=== PATIENT | male | born 1940 | race Caucasian/White ===

== ENCOUNTER 2016-09-10 04:32 | Inpatient (IN) | payer MEDICARE, OTHER ==
[2016-09-10] VITALS (18 sets, daily range): BP systolic 116–169; BP diastolic 54–84; PULSE 64–95; RESP 16–18; TEMP 97.6–98.2; O2SAT 95–99
[~2016-09-10] VITALS: Ht 175.3 cm; Wt 77.0 kg
[~2016-09-10 04:32] MED LIST: ASCO500T PO; ASPI1TAB69 PO; ATEN50TA PO; CLOP75TA PO; CYAN100017 PO; EZET1TAB8 PO; FINA5TAB2 PO; FOLI1TAB4 PO; HYDR12.57 PO; LEVO25TA4 PO; NIAS1000 PO; PANT20TA2 PO; RANO500 PO; ROSU1TAB8 PO; TAMS0.4C4 PO; VITA400T2 PO
[2016-09-10 05:13] LABS: AUTOMATED NEUTROPHIL # 4.5 TH/MM3 (1.8-7.7); BASOPHIL % 0.5 % (0.0-2.0); EOSINOPHIL # 0.2 TH/MM3 (0-0.4); EOSINOPHIL % 1.9 % (0.0-4.0); HEMATOCRIT 42.8 % (39.0-51.0); HEMO FLAGS DIFF FINAL; LYMPHOCYTE # 2.1 TH/MM3 (1.0-4.8); MEAN CELL VOLUME 103.1 FL (80.0-100.0); MEAN CORPUSCULAR HGB CONC 34.9 % (32.0-36.0); NEUT % 56.6 % (16.0-70.0); PLATELET COUNT 176 TH/MM3 (150-450); RED BLOOD COUNT 4.15 MIL/MM3 (4.50-5.90); RED CELL DISTRIBUTION WIDTH 14.9 % (11.6-17.2)
[2016-09-10 05:21] LABS: APTT (PATIENT) 28.1 SEC (24.3-30.1); PROTHROMBIN TIME - PATIENT 11.3 SEC (9.8-11.6)
[2016-09-10 05:25] LABS: ANION GAP 9 MEQ/L (5-15); AST (GOT) 28 U/L (15-37); BICARBONATE 29.9 MEQ/L (21.0-32.0); BLOOD UREA NITROGEN 17 MG/DL (7-18); CHLORIDE 100 MEQ/L (98-107); GLOMERULAR FILTRATION RATE 63 ML/MIN (>89); MAGNESIUM 1.9 MG/DL (1.5-2.5); POTASSIUM 3.4 MEQ/L (3.5-5.1); SODIUM (NA) 139 MEQ/L (136-145)
--- NOTE | 2016-09-10 05:29 | RADRPT ---
EXAM DATE/TIME: 09/10/2016 04:55 [place] COMPARISON: CHEST SINGLE AP, January 01, 2016, 11:59. INDICATIONS : Chest pain. MEDICAL HISTORY : Hypertension. Gastroesophageal reflux disease. SURGICAL HISTORY : CABG. Coronary artery stent. ENCOUNTER: Initial ACUITY: 3 days PAIN SCORE: 8/10 LOCATION: chest midline. FINDINGS: A single view of the chest demonstrates the lungs to be symmetrically aerated without evidence of mas s, infiltrate or effusion. Status post CABG. The cardiomediastinal contours are unremarkable. [place] us structures are intact. CONCLUSION: 1. Status post CABG. 2. No infiltrate. Willian Posadas MD on September 10, 2016 at 5:27 Board Certified Radiologist. This report was verified electronically.
[2016-09-10] MEDS ORDERED: ASPIRIN 81 MG CHEW TAB CHEW ONE (05:30)
[2016-09-10] MEDS ORDERED: NITROGLYCERIN 2% OINT 1 GM PACKET TOPICAL ONE (05:30)
[2016-09-10] MEDS ORDERED: SODIUM CHLOR 0.9% 250 ML INJ 250 ML IV ONE (05:30)
--- NOTE | 2016-09-10 05:30 | PD ---
HPI Chief Complaint: Cardiac Complaint Time Seen by Provider: 04:52 Travel History International Travel<30 days: No Contact w/Intl Traveler<30days: No Traveled to known affect area: No History of Present Illness HPI The patient is a 76 year old male who presents to the [facility] emergency department with a history of coronary artery disease with recurrent problems with angina for the last several years. The patient is followed by Dr. Becker for his cardiac care. He reports that approximately 22 years ago he underwent a 5 vessel bypass. He reports that to the vessels have included since then. He reports that he last had a cardiac catheterization 2-3 years ago. The patient recently underwent a chemical stress test on , however he reports that he filled it. He has an appointment with Dr. Howell on Saturday scheduled for a cardiac catheterization. The patient reports that on Saturday he began to have chest pain and nausea. The patient reports the chest pain resolved with nitroglycerin, however since then he has had persistent nausea. He reports that he's had vomiting 2. He reports that he's had diarrhea since Saturday 2 times per day. He denies having any blood in his stool or black or tarry stools. The patient reports having intermittent episodes of diaphoresis. He denies having any shortness of breath. He denies having any chest pain currently. The patient denies any recent fevers, cough, congestion, neck pain, abdominal pain, urinary symptoms, or neurologic symptoms. COUNTS INCLUDE 234 BEDS AT THE [facility] Past Medical History Narrative Medical The patient's past medical history is significant for acid reflux with Bone' s esophagitis, coronary artery disease, history of a valvular abnormality with a heart murmur, history of thrombocytopenia, anemia, benign prostatic hypertrophy, diverticulitis, history of inflammatory bowel disease, hyperlipidemia, hypertension Arthritis: Yes (RIGHT HIP) Autoimmune Disease: Yes (ARTHRITIS R HIP) Blood Disorders: No Heart Rhythm Problems: No Cancer: No Cardiac Catheterization: Yes Cardiovascular Problems: Yes (CABG, CAROTID STENTS, HEART CATH) High Cholesterol: Yes Chest Pain: No Congestive Heart Failure: No Diabetes: No Diminished Hearing: Yes (OSAGE) Endocrine: No Gastrointestinal Disorders: Yes (GERD; DIVERTICULITIS) GERD: Yes Glaucoma: No Genitourinary: No Headaches: Yes Hepatitis: No Hiatal Hernia: No Hypertension: Yes Immune Disorder: No Implanted Vascular Access Dvce: Yes Kidney Stones: Yes Musculoskeletal: No Neurologic: No Psychiatric: No Reproductive: No Respiratory: No Integumentary: No Thyroid Disease: Yes Past Surgical History Narrative Surgical The patient's past surgical history is significant for carotid endarterectomy on the right, history of a cholecystectomy, history of coronary artery bypass grafting of 5 vessels. Abdominal Surgery: No AICD: No Body Medical Devices: CAROTID STENTS; WIRES/WILLIE R/T CABG Cardiac Surgery: Yes Cholecystectomy: Yes Coronary Artery Bypass Graft: No Ear Surgery: No Endocrine Surgery: No Eye Surgery: No Genitourinary Surgery: No Gynecologic Surgery: No Joint Replacement: No Oral Surgery: No Pacemaker: No Thoracic Surgery: No Other Surgery: Yes (GALLBLADDER, RIGHT CEA) Social History Alcohol Use: Yes (SOCIAL) Tobacco Use: No Substance Use: No Allergies-Medications (Allergen,Severity, Reaction): Coded Allergies: Cipro (Verified Allergy, Severe, 09/10/16) Septra (Verified Allergy, Severe, CONTRACTED HEPATITIS, 09/10/16) Sulfa (Verified Allergy, Severe, CONTRACTED HEPATITIS, 09/10/16) Reported Meds & Prescriptions Reported Meds & Active Scripts Active Reported Vitamin D (Cholecalciferol) 400 Unit Tab 1 Tab PO DAILY Tamsulosin (Tamsulosin HCl) 0.4 Mg Cap 0.4 Mg PO HS Rosuvastatin (Rosuvastatin Calcium) 20 Mg Tab 20 Mg PO DAILY Ranexa ER 12 HR (Ranolazine) 500 Mg Tab 500 Mg PO BID Pantoprazole (Pantoprazole Sodium) 20 Mg Tab 20 Mg PO DAILY Niaspan (Niacin ER) 1,000 Mg Tab 1,000 Mg PO HS Hydrochlorothiazide 12.5 Mg Cap 12.5 Mg PO DAILY Levothyroxine (Levothyroxine Sodium) 25 Mcg Tab 25 Mcg PO DAILY Folate (Folic Acid) 1 Mg Tab 1 Mg PO DAILY Finasteride 5 Mg Tab 5 Mg PO HS Do not crush. Ezetimibe 10 Mg Tab 10 Mg PO DAILY B-12 (Cyanocobalamin) 1,000 Mcg Cap 1,000 Mcg PO DAILY Clopidogrel (Clopidogrel Bisulfate) 75 Mg Tab 75 Mg PO DAILY Atenolol 50 Mg Tab 25 Mg PO DAILY Aspirin 81 Mg Tabdr 81 Mg PO DAILY Ascorbic Acid 500 Mg Tab 500 Mg PO DAILY Review of Systems Except as stated in HPI: all other systems reviewed are Neg General / Constitutional: No: Fever Eyes: No: Visual changes HENT: No: Headaches Cardiovascular: Positive: Chest Pain or Discomfort Respiratory: No: Shortness of Breath Gastrointestinal: Positive: Nausea, Vomiting, Diarrhea, Changes in Bowel Habits , No: Abdominal Pain, Hematemesis, Hematochezia, Indigestion, Loss of Appetite Genitourinary: No: Dysuria Musculoskeletal: No: Pain Skin: No Rash Neurologic: No: Weakness Psychiatric: No: Depression Endocrine: No: Polydipsia Hematologic/Lymphatic: No: Easy Bruising Physical Exam Narrative General: The patient is a well-developed well-nourished male in no acute distress. Head and Neck exam: Head is normocephalic atraumatic. Eyes: EOMI, pupils are equal round and reactive to light. Nose: Midline septum with pink mucous membranes Mouth: Dentition unremarkable. Moist mucus membranes. Posterior oropharynx is not erythematous. No tonsillar hypertrophy. Uvula midline. Airway patent. Neck: No palpable lymphadenopathy. No nuchal rigidity. No thyromegaly. Cardiovascular: Regular rate and rhythm with a 2/6 systolic murmur, no gallops or rubs. Lungs: Clear to auscultation bilaterally. No wheezes, rhonchi, or rales. Abdomen: Soft, without tenderness to palpation in all 4 quadrants of the abdomen. No guarding, rebound, or rigidity. Normal bowel sounds are audible. No tenderness on palpation of McBurney's point. Negative Boo's sign. Extremities: No clubbing, cyanosis, or edema. 2+ pulses in all 4 extremities. No calf tenderness on palpation. Back: No spinous process tenderness to palpation. No costovertebral angle tenderness to palpation. Neurologic Exam: Grossly nonfocal. Skin Exam: No rash noted. Intact skin that is warm and dry. Data Data Last Documented VS Vital Signs Date Time Temp Pulse Resp B/P Pulse Ox O2 Delivery O2 Flow Rate FiO2 09/10/16 06:00 73 16 141/75 98 Room Air 09/10/16 04:34 97.8 Orders Electrocardiogram (09/10/16 04:52) Complete Blood Count With Diff (09/10/16 04:52) Comprehensive Metabolic Panel (09/10/16 04:52) Creatine Kinase (Cpk) (09/10/16 04:52) Ckmb (Isoenzyme) Profile (09/10/16 04:52) Troponin I (09/10/16 04:52) B-Type Natriuretic Peptide (09/10/16 04:52) Prothrombin Time / Inr (Pt) (09/10/16 04:52) Act Partial Throm Time (Ptt) (09/10/16 04:52) Lipase (09/10/16 04:52) Urinalysis - C+S If Indicated (09/10/16 04:52) Magnesium (Mg) (09/10/16 04:52) Chest, Single Ap (09/10/16 04:52) Iv Access Insert/Monitor (09/10/16 04:52) Ecg Monitoring (09/10/16 04:52) Oximetry (09/10/16 04:52) Lactic Acid (09/10/16 04:52) Aspirin Chew (Aspirin Chew) (09/10/16 05:30) Nitroglycerin 2% Oint (Nitroglycerin 2% (09/10/16 05:30) Sodium Chlor 0.9% 250 Ml Inj (Ns 250 Ml (09/10/16 05:30) Ondansetron Inj (Zofran Inj) (09/10/16 05:45) Potassium Chloride (Kcl) (09/10/16 06:15) Admit Order (Ed Use Only) (09/10/16 06:24) Labs Laboratory Tests Test 09/10/16 05:00 White Blood Count 8.0 TH/MM3 Red Blood Count 4.15 MIL/MM3 Hemoglobin 14.9 GM/DL Hematocrit 42.8 % Mean Corpuscular Volume 103.1 FL Mean Corpuscular Hemoglobin 36.0 PG Mean Corpuscular Hemoglobin 34.9 % Concent Red Cell Distribution Width 14.9 % Platelet Count 176 TH/MM3 Mean Platelet Volume 7.1 FL Neutrophils (%) (Auto) 56.6 % Lymphocytes (%) (Auto) 26.0 % Monocytes (%) (Auto) 15.0 % Eosinophils (%) (Auto) 1.9 % Basophils (%) (Auto) 0.5 % Neutrophils # (Auto) 4.5 TH/MM3 Lymphocytes # (Auto) 2.1 TH/MM3 Monocytes # (Auto) 1.2 TH/MM3 Eosinophils # (Auto) 0.2 TH/MM3 Basophils # (Auto) 0.0 TH/MM3 CBC Comment DIFF FINAL Differential Comment Prothrombin Time 11.3 SEC Prothromb Time International 1.0 RATIO Ratio Activated Partial 28.1 SEC Thromboplast Time Sodium Level 139 MEQ/L Potassium Level 3.4 MEQ/L Chloride Level 100 MEQ/L Carbon Dioxide Level 29.9 MEQ/L Anion Gap 9 MEQ/L Blood Urea Nitrogen 17 MG/DL Creatinine 1.14 MG/DL Estimat Glomerular Filtration 63 ML/MIN Rate Random Glucose 112 MG/DL Lactic Acid Level 1.5 mmol/L Calcium Level 9.1 MG/DL Magnesium Level 1.9 MG/DL Total Bilirubin 1.9 MG/DL Aspartate Amino Transf 28 U/L (AST/SGOT) Alanine Aminotransferase 25 U/L (ALT/SGPT) Alkaline Phosphatase 89 U/L Total Creatine Kinase 78 U/L Troponin I 0.07 NG/ML B-Type Natriuretic Peptide 77 PG/ML Total Protein 6.7 GM/DL Albumin 3.8 GM/DL Lipase 101 U/L MDM Medical Decision Making Medical Screen Exam Complete: Yes Emergency Medical Condition: Yes Medical Record Reviewed: Yes Differential Diagnosis Viral versus bacterial gastroenteritis, versus acute coronary syndrome, versus viral syndrome Narrative Course During the course of the patients emergency department visit, the patients history, examination, and differential diagnosis were reviewed with the patient. The patient had IV access obtained and blood work sent for analysis. The patienton a surveillance system monitor with oximetry and blood pressure monitoring. An EKG was done on arrival. The patient's EKG reveals a sinus rhythm heart rate of 76, first-degree AV block is noted. QRS duration is 106 ms, QTC [address] segment elevation is noted, T waves are inverted in V1, Q's are noted in lead 3. The patient reports that he take a baby aspirin prior to arrival. The patient was given an additional aspirin 81 mg by mouth, nitroglycerin 1 inch the chest wall, Zofran 4 mg IV, normal saline at 250 ml IV fluid bolus times one. The patients laboratory studies were reviewed and remarkable for a white count of 8, hemoglobin 14.9, platelet 176 with 15 monocytes, CMP is remarkable for a potassium of 3.4 which was supplemented orally, glucose 112, total bilirubin 1.9 and a patient with a history of Gilbert's syndrome, CPK 78, troponin I intermediate 0.07, BNP is 77, lipase 101, PT PTT within normal limits. Radiology studies were reviewed and remarkable for a chest x-ray that shows no acute abnormality. The patients results were discussed with the patient, including the plan of care. I explained that further testing and/ or monitoring is indicated based on the patients history, examination, and/ or laboratory findings. Therefore, I recommended admission for additional evaluation. The patient expressed understanding and was agreeable with this plan. The patient was admitted to the hospital in stable condition and sent to a bed under the care of the [facility] service. Physician Communication Physician Communication The patient's case was discussed with Dr. Pantoja who did agree to have the patient for further evaluation and treatment at this time. The patient's case was discussed with Dr. Howell, the case work aide at approximately 6:45 AM. He did agree to see the patient consultation and was agreeable with plan for the patient to be started on a heparin drip per [facility] protocol. Diagnosis Primary Impression: Unstable angina Additional Impression: Elevated troponin I level Admitting Information Admitting Physician Requests: it Elis Fox MD Sep 10, 2016 05:30
[2016-09-10 05:31] LABS: ALKALINE PHOSPHATASE 89 U/L (45-117); ALT (GPT) 25 U/L (12-78); TOTAL BILIRUBIN ADULT 1.9 MG/DL (0.2-1.0)
[2016-09-10 05:41] LABS: CREATINE KINASE 78 U/L (39-308)
[2016-09-10] MEDS ORDERED: ONDANSETRON HCL 4 MG/2 ML VIAL IV ONE (05:45)
[2016-09-10] MEDS ORDERED: POTASSIUM CHLORIDE 20 MEQ CONTROLLED RELEASE TAB PO ONE (06:15)
[2016-09-10] MEDS ORDERED: SODIUM CHLOR 0.9% 1000 ML INJ 1,000 ML IV SCH ×2 (06:25→12:11)
[2016-09-10] MEDS ORDERED: SODIUM CHLORIDE 0.9% FLUSH 10 ML FLUSH IV FLUSH PRN (06:30)
[2016-09-10] MEDS ORDERED: HEPARIN-D5W INJ 250 ML IV SCH (06:45)
[2016-09-10] MEDS ORDERED: HEPARIN SODIUM - IV 10,000 UNITS/10 ML VIAL IV ONE (06:45)
[2016-09-10] MEDS ORDERED: MORPHINE SULFATE 4 MG/ML INJ IV PRN (07:00)
[2016-09-10] MEDS ORDERED: ACETAMINOPHEN 325 MG TAB PO ONE (07:45)
[2016-09-10] MEDS ORDERED: ACETAMINOPHEN 325 MG TAB PO PRN ×2 (08:00→12:15)
[2016-09-10] MEDS ORDERED: ACETAMINOPHEN/HYDROcodone 325 MG/5 MG TAB PO PRN (08:00)
[2016-09-10] MEDS: SODIUM CHLORIDE 0.9% FLUSH 10 ML FLUSH IV FLUSH SCH ×2 (08:38→21:53)
[2016-09-10] MEDS: FOLIC ACID 1 MG TAB PO SCH (08:38)
[2016-09-10] MEDS: ASPIRIN EC 81 MG TABEC PO SCH (08:38)
[2016-09-10] MEDS: ATENOLOL 50 MG TAB PO SCH (08:38)
[2016-09-10] MEDS: ATORVASTATIN 40 MG TAB PO SCH (08:39)
[2016-09-10] MEDS: PANTOPRAZOLE SOD 20 MG DELAYED RELEASE TAB PO SCH (08:39)
[2016-09-10] MEDS: CHOLECALCIFEROL (VIT D3) 400 UNIT TAB PO SCH (08:39)
[2016-09-10] MEDS: ASCORBIC ACID 500 MG TAB PO SCH (08:39)
[2016-09-10] MEDS: EZETIMIBE 10 MG TAB PO SCH (08:39)
[2016-09-10] MEDS: LEVOTHYROXINE SODIUM 25 MCG TAB PO SCH (08:43)
[2016-09-10] MEDS: RANOLAZINE 500 MG EXTENDED RELEASE TAB PO SCH ×2 (08:43→21:53)
[2016-09-10] MEDS ORDERED: CLOPIDOGREL 75 MG TAB PO SCH (09:00)
[2016-09-10] MEDS ORDERED: BISACODYL 10 MG SUPP RECTAL PRN (09:00)
[2016-09-10 09:03] LABS: BLOOD, URINE NEG (NEG); COMMENT (UR) CULT NOT INDICATED; CULTURE IF INDICATED CULT NOT INDICATED; GLUCOSE,URINE NEG (NEG); HYALINE CAST, URINE 7 /lpf (RARE); KETONE, URINE 10 mg/dL (NEG); MUCUS URINE MANY /lpf (OCC); NITRITE,URINE NEG (NEG); URINE COLOR YELLOW (YELLW/STRAW)
[2016-09-10] MEDS ORDERED: IOHEXOL 350 MG/ML 100 ML BTL (for Cath Lab) OTHER ONE (09:21)
[2016-09-10] MEDS ORDERED: MIDAZOLAM HCL 2 MG/2 ML VIAL ONE ×2 (09:39→10:50)
[2016-09-10] MEDS ORDERED: SODIUM NITROPRUSSIDE 50 MG/2 ML VIAL ONE (10:29)
[2016-09-10] MEDS ORDERED: HEPARIN SODIUM - IV 10,000 UNITS/10 ML VIAL ONE (10:31)
[2016-09-10] MEDS ORDERED: HEPARIN-NS/PF INJ 500 ML ONE (10:43)
[2016-09-10] MEDS ORDERED: TICAGRELOR 90 MG TAB PO ONE ×2 (11:26→12:15)
[2016-09-10] MEDS ORDERED: PROTAMINE SULFATE 50 MG/5 ML VIAL ONE (11:28)
[2016-09-10] MEDS ORDERED: ONDANSETRON HCL 4 MG/2 ML VIAL IVP PRN (12:00)
[2016-09-10] MEDS ORDERED: MISC INFORMATION XX ONE (12:15)
[2016-09-10] MEDS ORDERED: ATROPINE SULFATE 1 MG/ML VIAL IV PRN (12:15)
[2016-09-10] MEDS ORDERED: ONDANSETRON HCL 4 MG/2 ML VIAL IV PRN (12:15)
--- NOTE | 2016-09-10 12:45 | MB ---
cc: IRON HEBERT MD DATE OF 1940 DATE OF CONSULTATION September 10, 2016 REASON FOR CONSULTATION Unstable angina. HISTORY OF PRESENT ILLNESS 76-year-old male with a past medical history significant for CAD status post five-vessel CABG, moderate aortic stenosis, hypertension, hyperlipidemia, carotid stents who presented to the emergency department with complaints of chest discomfort for the last couple of days associated with nausea and not relieved by nitroglycerin. The patient is followed by Dr. Dumont. He recently had a chemical stress test which showed reversible defect in the inferior wall. In the emergency department he was started on heparin drip, given aspirin, nitrates and Plavix. He denies fever, chills, bleeding, weight loss, dizziness, syncope, leg swelling, PND or palpitations. ER EKG sinus rhythm with no acute ST changes. Cardiology has been consulted for further management and evaluation. REVIEW OF SYSTEMS Negative except for what is mentioned in the HPI. PAST MEDICAL HISTORY 1. Coronary artery disease as mentioned above. 2. Moderate aortic stenosis. 3. BPH. 4. Hypertension. 5. Hyperlipidemia. 6. DVT. 7. Colitis. 8. Gastroesophageal reflux disease. 9. Carotid stenosis status post stents. PAST SURGICAL HISTORY CABG. Carotid endarterectomy. Cholecystectomy. SOCIAL HISTORY He drinks alcohol socially. No tobacco use or illicit drug use. ALLERGIES CIPRO. SEPTRA. SULFA. CARDIAC HOME MEDICATIONS 1. Rosuvastatin 20 mg p.o. daily. 2. Ranexa 5 mg p.o. b.i.d. 4. Niacin 1000 mg p.o. q.h.s. 5. Hydrochlorothiazide 12.5 mg p.o. daily. 6. Plavix 75 mg p.o. daily. 7. Atenolol 50 mg p.o. daily. 8. Aspirin 81 mg p.o. daily. REVIEW OF SYSTEMS Negative except for what is mentioned in the HPI. FAMILY HISTORY Noncontributory. PHYSICAL EXAMINATION VITAL SIGNS: Temperature 98.2, pulse 76, blood pressure 157/84, O2 sats 98% on room air. GENERAL: Awake, alert, oriented x 3. In no acute distress. NECK: No JVD, no carotid bruits. HEART: Regular rate and rhythm. A 3/6 systolic ejection murmur in the aortic focus. LUNGS: Clear to auscultation bilaterally. No wheezes, no rhonchi, no rales. ABDOMEN: Soft, nontender, nondistended with positive bowel sounds. EXTREMITIES: No cyanosis or edema. Pulses throughout. DATA CBC: Hemoglobin 14, hematocrit 42, platelet count 176. INR 1. CHEMISTRIES: Sodium 139, potassium 3.4, BUN 17, creatinine 1.14. Troponin 0.07. Urinalysis showing a large amount of proteins. CHEST X-RAY No acute pulmonary process. EKG Normal sinus rhythm with a third degree AV block. ECHOCARDIOGRAM done today, shows preserved LV systolic function and moderate aortic stenosis with a mean gradient of 24, a velocity of 2.1 and a calculated valve area of 1. [facility] 2013- Severe [place] vessel CAD with Patent ROLDAN to LAD, SVG to RCA and SVG to OM. ASSESSMENT AND PLAN 76-year-old male with known coronary artery disease who presented with chest pain that is not relieved by nitroglycerin suggestive of unstable angina. He has a recent positive nuclear stress test done at the office. He remains hemodynamically stable. His chest pain has subsided with medication. Given the patient's cardiac history and symptoms, he should be taken to the mobile home laborer to further assess CAD/SVG disease progression +/- PCI. The risks and benefits of left heart cath/intervention including but not limited to bleeding, infection, acute kidney injury, emergent bypass surgery, MT, neurovascular trauma, stroke and have been explained to the patient. The patient understands the risks and is willing to proceed. Regarding his Aortic Stenosis it seems to be at moderate in severity. Today's Echo- HALLEY is 1.0cm2, 20's mean gradients and 2.1 velocities. This can be followed with Dr. Rodarte on an outpatient setting. RECOMMENDATIONS 1. Keep n.p.o. 2. Left and Right heart cath today. 3. Continue Plavix and aspirin as well as beta-blockers, JOSE inhibitors, statins and heparin shivani. Thank you for the opportunity to take part in the care of this patient. Further therapy to be determined. MD RAMAN Johns/SSB /12:19 PM /12:35 PM ELIEL
--- NOTE | 2016-09-10 12:57 | MA ---
cc: GARY HEBERT DATE: 09/10/2016 DATE OF : 1940 PREOPERATIVE DIAGNOSIS 1. Unstable angina. 2. Known coronary artery disease, status post CABG x5. 3. Recent positive stress test. 4. Moderate aortic stenosis. POSTOPERATIVE DIAGNOSIS 1. Severe shawnee vessel coronary artery disease. 2. Patent 3/5 grafts. 3. Moderate aortic stenosis. 4. Successful revascularization of two vein grafts. PROCEDURE 1. Right heart catheterization to assess cardiac output. 2. Left heart catheterization 3. Selective right and left coronary angiography. 4. Selective saphenous vein grafts and internal mammary artery angiography. INDICATIONS Unstable angina, positive stress test. PROCEDURE DESCRIPTION Consent signed. The patient was brought into the cardiac microbiology lab manager in a fasting state. Using 1% lidocaine for local anesthesia and a micropuncture kit a 6- American sheath was inserted into the right common femoral artery. Right common femoral artery angiography was performed to confirm position of the sheath. Also, a 7-American sheath was inserted into the right femoral vein. Then we floated through the vein sheath a [place]-Car to wedge and this was followed by right heart pressure recordings as well as obtaining oxygen saturations on the right heart (MPA, RA, FA) and femoral artery. Then we proceeded with selective right and left coronary angiography as well as saphenous vein graft as internal mammary artery. Angiography was taken in multiple views. Left ventriculogram and hemodynamics were not obtained because the patient has a recent echocardiogram that shows preserved LV systolic function with moderate aortic stenosis. Angiography revealed 3/5 grafts patent and severe shawnee vessel CAD, which was unchanged from previous, however, the anatomy of the saphenous vein graft had significant progression of disease. Thus percutaneous intervention was planned. The first graft treated was the SVG to RCA. IV heparin was given for anticoagulation. The graft was then engaged with a 6-American multipurpose guide. We tried to deploy a distal protection device, however, given tortuosity of the vessel this was not possible. The vessel then as wired with a Choice PT extra-support wire where it was anchored distally. Nipride was given for chemical distal protection and this was followed by pre-dilation of the proximal aspect of the graft with a 2.5 x 12 balloon followed by insertion and deployment of a 2.75 x 12 drug-eluting stent in the distal segment of the graft, then a 2.75 x 22 in the midsegment of the graft and then a 2.75 x 22 on the proximal aspect of the graft. Final angiographic views revealed good stent apposition and expansion with LOLI-III flow. The saphenous vein graft going to the OM was engaged with a JR4 6-American guide. This was followed by wiring the vessel with a Choice PT wire and direct stenting with a 2.75 x 12 drug-eluting stent. Final angiographic views revealed good stent apposition and expansion with LOLI-III flow. The patient tolerated the procedure well without complications. Estimated blood loss was less than 70 cc. Total contrast used was 200 cc. The patient was loaded with Brilinta after the procedure. The right groin access site was closed with a Perclose device and the vein with a Vascade device. RESULTS HEMODYNAMICS Right heart catheterization: Right atrial pressure 2 mmHg. Right ventricular pressure 27/8. Right atrial pressure 2/2. Pulmonary capillary wedge pressure is 3. Main pulmonary artery pressure 18/4 with a mean of 10. Cardiac output by Brice calculation was 5. Left heart catheterization: Central aortic pressure was 110/55 with a mean of 75. CORONARY ANGIOGRAPHY 1. The left main tapers distally to a 70% stenosis in a Subramanian 1,0,0 classification. It does have LOLI-III flow. 2. The left anterior descending artery is totally occluded near its origin. 3. The left circumflex coronary artery has an ostial 40% lesion that is unchanged. OM1, 2 and 3 are patent; however, the OM1 and 2 are small. OM3 is the larger one. 4. The ramus is small and patent. 5. The right coronary artery is a dominant vessel which is diffusely diseased. It has a long mid 70% lesion that is unchanged from the last cath. GRAFT ANGIOGRAPHY 6. The saphenous vein graft to the right coronary artery is significantly diseased. There is a proximal 90% lesion, a mid long 70% lesion and a distal focal 70% lesion which has progressed from the last catheterization. 7. The saphenous vein graft to the first obtuse marginal has a 70% lesion in its ostial segment which has progressed from the last catheterization. 8. The internal mammary artery to the LAD is patent and adequately revascularizes the LAD. CONCLUSIONS 1. Severe three-vessel coronary artery disease. 2. Successful PCI/AMIE to SVG to right coronary artery and SVG to obtuse marginal. 3. Moderate aortic stenosis. RECOMMENDATIONS The patient will be staying overnight in the [facility] for observation. Will continue telemetry, post cath care, bed rest for the next four hours, IV hydration with 125 cc per hour of normal saline for the next four hours, and early ambulation after bed rest. Regarding his medications the patient should be on optimal medical therapy for ischemic heart disease which includes beta- homer, statin, JOSE inhibitor, lung long-acting nitrates and dual-antiplatelet agent with aspirin and Brilinta. Gary Hebert MD DIRECTOR OF MECHANICAL ENGINEERING/BT /12:00 PM /12:23 PM MTDAri
[2016-09-10 13:46] LABS: HEMATOCRIT 37.5 % (39.0-51.0); MEAN CELL VOLUME 103.3 FL (80.0-100.0); MEAN CORPUSCULAR HEMOGLOBIN 36.2 PG (27.0-34.0); MEAN CORPUSCULAR HGB CONC 35.1 % (32.0-36.0); PLATELET COUNT 168 TH/MM3 (150-450); RED BLOOD COUNT 3.63 MIL/MM3 (4.50-5.90); RED CELL DISTRIBUTION WIDTH 14.9 % (11.6-17.2); REVIEW FLAG FINAL; WHITE BLOOD COUNT 7.4 TH/MM3 (4.0-11.0)
[2016-09-10 13:54] LABS: APTT (PATIENT) 28.6 SEC (24.3-30.1); PROTHROMBIN TIME - PATIENT 11.6 SEC (9.8-11.6)
--- NOTE | 2016-09-10 14:09 | EKG ---
Date Performed: 09/10/2016 Time Performed: 04:50:23 PTAGE: 76 years EKG: Sinus rhythm WITH FIRST DEGREE AV BLOCK Since previous tracing, no significant change noted ABNORMAL ECG PREVIOUS TRACING : 01/01/2016 11.33 DOCTOR: Krystal Dumont Interpretating Date/Time 09/10/2016 14:07:50
--- NOTE | 2016-09-10 15:37 | EC ---
Study Study Date:09/10/2016 STUDY CONCLUSIONS SUMMARY - Left ventricle: The cavity size was normal. Wall thickness was normal. Systolic function was normal. The estimated ejection fraction was in the range of 55% to 60%. Wall motion was normal; there were no regional wall motion abnormalities. - Aortic valve: There was moderate stenosis. Valve area: 0.96cm^2(VTI). Valve area: 1.02cm^2 (Vmax). - Mitral valve: Mild regurgitation. - Pulmonary arteries: PA peak pressure: 45mm Hg (S). If LV function is below 40, please consider prescribing an ACEI or ARB or document rationale for non-use. PROCEDURE DATA STUDY STATUS: Elective. Procedure: Transthoracic echocardiography. Image quality was good. Scanning was performed from the parasternal, apical, and subcostal acoustic windows. Study completion: The patient tolerated the procedure well. Transthoracic echocardiography. M-mode, complete 2D, complete spectral Doppler, and color Doppler. Patient status: Inpatient. CARDIAC ANATOMY LEFT VENTRICLE: The cavity size was normal. Wall thickness was normal. Systolic function was normal. The estimated ejection fraction was in the range of 55% to 60%. Wall motion was normal; there were no regional wall motion abnormalities. AORTIC VALVE: Doppler: There was moderate stenosis. Trace to mild regurgitation. Valve area: 0.96cm^2(VTI). Valve area: 1.02cm^2 (Vmax). Mean gradient: 21mm Hg (S). Peak gradient: 39mm Hg (S). AORTA: Aortic root: The aortic root was normal in size. MITRAL VALVE: Structurally normal valve. Doppler: Transvalvular velocity was within the normal range. There was no evidence for stenosis. Mild regurgitation. LEFT ATRIUM: The atrium was normal in size. RIGHT VENTRICLE: The cavity size was normal. Wall thickness was normal. PULMONIC VALVE: Doppler: Transvalvular velocity was within the normal range. There was no evidence for stenosis. No regurgitation. TRICUSPID VALVE: Structurally normal valve. Doppler: Transvalvular velocity was within the normal range. No regurgitation. PULMONARY ARTERY: The main pulmonary artery was normal-sized. Systolic pressure was within the normal range. RIGHT ATRIUM: The atrium was normal in size. PERICARDIUM: There was no pericardial effusion. SYSTEMIC VEINS: Inferior vena cava: The vessel was normal in size. BASIC MEASUREMENTS ADULT Normal Left ventricle LV internal dimension, ED, chordal level, 43.5 mm 43-52 PLAX LV internal dimension, ES, chordal level, 32 mm 23-38 PLAX Fractional shortening, chordal level, PLAX *26 % >29 LV posterior wall thickness, ED 11.7 mm IVS/LVPW ratio, ED *1.43 <1.3 Ventricular septum Septal thickness, ED 16.7 mm Aortic valve Leaflet separation *7 mm 15-26 Right ventricle RV internal dimension, ED, PLAX 32.7 mm 19-38 BASIC MEASUREMENTS ADULT Normal Aortic valve Leaflet separation *7 mm 15-26 Aorta Root diameter, ED 34 mm 20-37 Left atrium Anterior-posterior dimension, ES 36 mm 19-40 LA/aortic root ratio 1.06 DOPPLER MEASUREMENTS ADULT Normal Main pulmonary artery Pressure, S *45 mm Hg =30 Aortic valve Peak velocity, S 313 cm/s Mean velocity, S 211 cm/s VTI, S 62.6 cm Mean gradient, S 21 mm Hg Peak gradient, S 39 mm Hg Valve area, VTI 0.96 cm^2 Valve area, Vmax 1.02 cm^2 Mitral valve Peak E-wave velocity 56.3 cm/s Peak A-wave velocity 102 cm/s Peak E/A ratio 0.6 Tricuspid valve Regurgitant peak velocity 292 cm/s Peak RV-RA gradient, S 34 mm Hg Maximal regurgitant velocity 292 cm/s Systemic veins Estimated CVP 10 mm Hg Right ventricle RV pressure, S *45 mm Hg <30 LEGEND: Mean values are shown as u=mean value. Asterisk (*) daniels values outside specified normal range. Prepared and signed by Harris Ye [id number]
--- NOTE | 2016-09-10 18:51 | HHI.HP ---
[facility] Heather Seals M.D. Admission Diagnosis unstable angina, intermediate troponin i Diagnoses: Chief Complaint: Chest discomfort Travel History International Travel<30 Days: No Contact w/Intl Traveler <30 Da: No Traveled to Known Affected Are: No History of Present Illness This is a 76-year-old male with past medical history significant for CAD status post CABG 5, moderate aortic stenosis, hypertension, hyperlipidemia, carotid stents who presents to [facility] complaining of chest discomfort for the past couple days. The patient's chest pain is described as aching which started on the left tooth then had some pain in the left upper extremity with subsequent chest pain associated with nausea which was partially relieved by nitroglycerin. The patient follows with Dr Becker. Apparently the patient recently had a chemical stress test on and he reports that he failed it. Patient already had an appointment with Dr. Howell next used a schedule for cardiac catheterization, however he reports that this past Saturday he began expressing chest pain and nausea. Patient reports that chest pain resolved with nitroglycerin, however since then he has had persistent nausea. Patient states has also diarrhea since . states was prescribed antibiotics two weeks ago for shingles. Review of Systems As per history of present illness, other systems reviewed and negative Past Family Social History Past Medical History 1. Coronary disease status post CABG 5. 2. Moderate aortic stenosis. 3. BPH. 4. Hypertension. 5. Hyperlipidemia. 6. DVT. 7. Colitis. 8. GERD. 9. Carotid stenosis status post stents. Past Surgical History 1. CABG. 2. Carotid endarterectomy. 2. Cholecystectomy Reported Medications Vitamin D (Cholecalciferol) 400 Unit Tab 1 Tab PO DAILY Tamsulosin (Tamsulosin HCl) 0.4 Mg Cap 0.4 Mg PO HS Rosuvastatin (Rosuvastatin Calcium) 20 Mg Tab 20 Mg PO DAILY Ranexa ER 12 HR (Ranolazine) 500 Mg Tab 500 Mg PO BID Pantoprazole (Pantoprazole Sodium) 20 Mg Tab 20 Mg PO DAILY Niaspan (Niacin ER) 1,000 Mg Tab 1,000 Mg PO HS Hydrochlorothiazide 12.5 Mg Cap 12.5 Mg PO DAILY Levothyroxine (Levothyroxine Sodium) 25 Mcg Tab 25 Mcg PO DAILY Folate (Folic Acid) 1 Mg Tab 1 Mg PO DAILY Finasteride 5 Mg Tab 5 Mg PO HS Do not crush. Ezetimibe 10 Mg Tab 10 Mg PO DAILY B-12 (Cyanocobalamin) 1,000 Mcg Cap 1,000 Mcg PO DAILY Clopidogrel (Clopidogrel Bisulfate) 75 Mg Tab 75 Mg PO DAILY Atenolol 50 Mg Tab 25 Mg PO DAILY Aspirin 81 Mg Tabdr 81 Mg PO DAILY Ascorbic Acid 500 Mg Tab 500 Mg PO DAILY Allergies: Coded Allergies: Cipro (Verified Allergy, Severe, 09/10/16) Septra (Verified Allergy, Severe, CONTRACTED HEPATITIS, 09/10/16) Sulfa (Verified Allergy, Severe, CONTRACTED HEPATITIS, 09/10/16) Active Ordered Medications Current Medications Medications (Trade) Dose Ordered Sig/Angelica Route Start Time Stop Time Status Last Admin (NS Flush) 2 ml UNSCH PRN IV FLUSH 09/10/16 06:30 (NS Flush) 2 ml BID IV FLUSH 09/10/16 09:00 09/10/16 08:38 (Zofran Inj) 4 mg Q6H PRN IVP 09/10/16 12:00 (Dulcolax Supp) 10 mg DAILY PRN RECTAL 09/10/16 09:00 (Tylenol) 650 mg Q6H PRN PO 09/10/16 08:00 (Friona 5-325 Mg) 1 tab Q4H PRN PO 09/10/16 08:00 09/10/16 08:38 (Morphine Inj) 2 mg Q3H PRN IV 09/10/16 07:00 09/10/16 08:38 (Vitamin C) 500 mg DAILY PO 09/10/16 09:00 09/10/16 08:39 (Ecotrin Ec) 81 mg DAILY PO 09/10/16 09:00 09/10/16 08:38 (Tenormin) 25 mg DAILY PO 09/10/16 09:00 09/10/16 08:38 (Vitamin D3) 400 units DAILY PO 09/10/16 09:00 09/10/16 08:39 (Zetia) 10 mg DAILY PO 09/10/16 09:00 09/10/16 08:39 (Proscar) 5 mg HS PO 09/10/16 21:00 (Folate) 1 mg DAILY PO 09/10/16 09:00 09/10/16 08:38 (Synthroid) 25 mcg DAILY@06 PO 09/10/16 09:00 09/10/16 08:43 (Protonix) 20 mg DAILY PO 09/10/16 09:00 09/10/16 08:39 (Ranexa) 500 mg BID PO 09/10/16 09:00 (Flomax) 0.4 mg HS PO 09/10/16 21:00 (Lipitor) 40 mg DAILY PO 09/10/16 09:00 09/10/16 08:39 (Brilinta) 90 mg BID PO 09/11/16 09:00 (Atropine Inj) 0.5 mg UNSCH PRN IV 09/10/16 12:15 (Zofran Inj) 4 mg Q4H PRN IV 09/10/16 12:15 (Imdur) 30 mg DAILY@07 PO 09/11/16 07:00 Family History discussed with patient and non contributory to the current presentation Social History Patient states he drinks alcohol socially. Denies tobacco or illicit drug use. Physical Exam Vital Signs Vital Signs Date Time Temp Pulse Resp B/P Pulse Ox O2 Delivery O2 Flow Rate FiO2 09/10/16 18:00 66 09/10/16 17:00 74 09/10/16 16:00 98.2 71 18 116/54 97 09/10/16 16:00 65 09/10/16 15:00 64 09/10/16 14:00 70 09/10/16 13:00 76 09/10/16 12:00 72 09/10/16 12:00 98.1 81 16 124/69 96 09/10/16 10:00 16 09/10/16 09:00 76 09/10/16 08:47 16 09/10/16 08:00 98.2 75 16 157/84 98 09/10/16 08:00 76 09/10/16 07:30 78 18 128/78 95 09/10/16 06:00 73 16 141/75 98 Room Air 09/10/16 05:04 81 16 152/83 97 Room Air 09/10/16 04:34 97.8 92 16 169/81 98 Room Air Physical Exam GENERAL: This is a well-nourished, well-developed patient, in no apparent distress. SKIN: No rashes, ecchymoses or lesions. Cool and dry. HEAD: Atraumatic. Normocephalic. No temporal or scalp tenderness. EYES: Pupils equal round and reactive. Extraocular motions intact. No scleral icterus. No injection or drainage. ENT: Nose without bleeding, purulent drainage or septal hematoma. Throat without erythema, tonsillar hypertrophy or exudate. Uvula midline. Airway patent. NECK: Trachea midline. No JVD or lymphadenopathy. Supple, nontender, no meningeal signs. CARDIOVASCULAR: Regular rate and rhythm without murmurs, gallops, or rubs. RESPIRATORY: Clear to auscultation. Breath sounds equal bilaterally. No wheezes , rales, or rhonchi. GASTROINTESTINAL: Abdomen soft, non-tender, nondistended. No hepato-splenomegaly , or palpable masses. No guarding. MUSCULOSKELETAL: Extremities without clubbing, cyanosis, or edema. No joint tenderness, effusion, or edema noted. No calf tenderness. Negative Homans sign bilaterally. NEUROLOGICAL: Awake and alert. Cranial nerves II through XII intact. Motor and sensory grossly within normal limits. Five out of 5 muscle strength in all muscle groups. Normal speech. Laboratory Laboratory Tests Test 09/10/16 09/10/16 09/10/16 09/10/16 05:00 08:30 13:25 16:34 White Blood Count 8.0 7.4 Red Blood Count 4.15 3.63 Hemoglobin 14.9 13.1 Hematocrit 42.8 37.5 Mean Corpuscular Volume 103.1 103.3 Mean Corpuscular Hemoglobin 36.0 36.2 Mean Corpuscular Hemoglobin 34.9 35.1 Concent Red Cell Distribution Width 14.9 14.9 Platelet Count 176 168 Mean Platelet Volume 7.1 7.1 Neutrophils (%) (Auto) 56.6 Lymphocytes (%) (Auto) 26.0 Monocytes (%) (Auto) 15.0 Eosinophils (%) (Auto) 1.9 Basophils (%) (Auto) 0.5 Neutrophils # (Auto) 4.5 Lymphocytes # (Auto) 2.1 Monocytes # (Auto) 1.2 Eosinophils # (Auto) 0.2 Basophils # (Auto) 0.0 CBC Comment DIFF FINAL Differential Comment Prothrombin Time 11.3 11.6 Prothromb Time International 1.0 1.0 Ratio Activated Partial 28.1 28.6 Thromboplast Time Sodium Level 139 Potassium Level 3.4 Chloride Level 100 Carbon Dioxide Level 29.9 Anion Gap 9 Blood Urea Nitrogen 17 Creatinine 1.14 Estimat Glomerular Filtration 63 Rate Random Glucose 112 Lactic Acid Level 1.5 Calcium Level 9.1 Magnesium Level 1.9 Total Bilirubin 1.9 Aspartate Amino Transf 28 (AST/SGOT) Alanine Aminotransferase 25 (ALT/SGPT) Alkaline Phosphatase 89 Total Creatine Kinase 78 Troponin I 0.07 0.11 0.11 B-Type Natriuretic Peptide 77 Total Protein 6.7 Albumin 3.8 Lipase 101 Urine Color YELLOW Urine Turbidity CLEAR Urine pH 6.0 Urine Specific [place] 1.036 Urine Protein 30 Urine Glucose (UA) NEG Urine Ketones 10 Urine Occult Blood NEG Urine Nitrite NEG Urine Bilirubin NEG Urine Urobilinogen 2.0 Urine Leukocyte Esterase NEG Urine WBC 2 Urine Hyaline Casts 7 Urine Mucus MANY Microscopic Urinalysis Comment CULT NOT INDICATED Result Diagram: 09/10/16 1325 09/10/16 0500 Imaging Last Impressions Chest X-Ray 09/10/16 0452 Signed Impressions: Service Date/Time: Saturday, September 10, 2016 04:55 - CONCLUSION: 1. Status post CABG. 2. No infiltrate. Willian Posadas MD Reviewed by me EKG reviewed by me showed sinus rhythm at a ventricular rate of [address] changes suggestive of active ischemia. Assessment and Plan Problem List: (1) Chest pain ICD Code: R07.9 Status: Acute (2) NSTEMI (non-ST elevated myocardial infarction) ICD Code: I21.4 Status: Acute (3) Hypertension ICD Code: I10 Status: Chronic (4) Hyperlipidemia ICD Code: E78.5 Status: Chronic (5) Hypothyroidism ICD Code: E03.9 Status: Chronic (6) BPH (benign prostatic hypertrophy) ICD Code: N40.0 Status: Chronic (7) Abnormal nuclear stress test ICD Code: R94.39 Status: Acute (8) Carotid artery stenosis ICD Code: I65.29 Status: Acute (9) Diarrhea ICD Code: R19.7 Status: Acute Assessment and Plan Method the patient to the cardiac floor and started on heparin drip in the emergency department Cardiology consulted and following The patient is status post cardiac catheterization were severe three-vessel disease was diagnosed with successful PCI/DS to saphenous vein graft to first obtuse marginal. Moderate aortic stenosis. Follow-up cardiology recommendations Continue aspirin, started on Brillinta, continue Adonis, beta homer and statin check stool studies including C diff - place on Contact isolation until c diff ruled out. Start probiotics. Discussed Condition With Patient Physician Certification 2 Midnight Certification Type: Admission for Inpatient Services Order for Inpatient Services The services are ordered in accordance with Medicare regulations or non- Medicare payer requirements, as applicable. In the case of services not specified as inpatient-only, they are appropriately provided as inpatient services in accordance with the 2-midnight benchmark. Estimated LOS (days): 2 days is the estimated time the patient will need to remain in the hospital, assuming treatment plan goals are met and no additional complications. Post-Hospital Plan: Home Heath Hopper MD Sep 10, 2016 18:51
[2016-09-10] MEDS ORDERED: TAMSULOSIN HCL 0.4 MG CAP PO SCH (21:00)
[2016-09-10] MEDS ORDERED: FINASTERIDE 5 MG TAB PO SCH (21:00)
[2016-09-10 23:57] LABS: C. DIFF EPI 027 PRESUMPTIVE NEGATIVE (NEGATIVE); C. DIFF TOXIN PCR NEGATIVE (NEGATIVE)
[2016-09-11] VITALS (15 sets, daily range): BP systolic 96–115; BP diastolic 64–66; PULSE 66–98; RESP 16–18; TEMP 97.3–98.2; O2SAT 97–98
[2016-09-11] MEDS: LEVOTHYROXINE SODIUM 25 MCG TAB PO SCH (05:57)
[2016-09-11 06:49] LABS: AUTOMATED NEUTROPHIL # 4.1 TH/MM3 (1.8-7.7); BASOPHIL % 0.2 % (0.0-2.0); EOSINOPHIL # 0.1 TH/MM3 (0-0.4); EOSINOPHIL % 1.7 % (0.0-4.0); HEMATOCRIT 36.1 % (39.0-51.0); HEMO FLAGS DIFF FINAL; LYMPH % 21.8 % (9.0-44.0); LYMPHOCYTE # 1.4 TH/MM3 (1.0-4.8); MEAN CELL VOLUME 103.2 FL (80.0-100.0); MEAN CORPUSCULAR HEMOGLOBIN 36.9 PG (27.0-34.0); MEAN CORPUSCULAR HGB CONC 35.7 % (32.0-36.0); MONO % 12.8 % (0.0-8.0); NEUT % 63.5 % (16.0-70.0); PLATELET COUNT 153 TH/MM3 (150-450); RED BLOOD COUNT 3.49 MIL/MM3 (4.50-5.90); RED CELL DISTRIBUTION WIDTH 15.1 % (11.6-17.2); WHITE BLOOD COUNT 6.5 TH/MM3 (4.0-11.0)
[2016-09-11] MEDS ORDERED: ISOSORBIDE MONONITRATE 30 MG TAB PO SCH (07:00)
[2016-09-11 07:23] LABS: ALKALINE PHOSPHATASE 72 U/L (45-117); ALT (GPT) 20 U/L (12-78); ANION GAP 9 MEQ/L (5-15); AST (GOT) 21 U/L (15-37); BLOOD UREA NITROGEN 13 MG/DL (7-18); CHLORIDE 105 MEQ/L (98-107); GLOMERULAR FILTRATION RATE 81 ML/MIN (>89); POTASSIUM 3.4 MEQ/L (3.5-5.1); SODIUM (NA) 142 MEQ/L (136-145); TOTAL BILIRUBIN ADULT 1.5 MG/DL (0.2-1.0)
[2016-09-11 07:24] LABS: CREATINE KINASE 48 U/L (39-308)
[2016-09-11] MEDS: ATENOLOL 50 MG TAB PO SCH (08:27)
[2016-09-11] MEDS: RANOLAZINE 500 MG EXTENDED RELEASE TAB PO SCH (08:29)
[2016-09-11] MEDS: EZETIMIBE 10 MG TAB PO SCH (08:29)
[2016-09-11] MEDS: CHOLECALCIFEROL (VIT D3) 400 UNIT TAB PO SCH (08:29)
[2016-09-11] MEDS: ASPIRIN EC 81 MG TABEC PO SCH (08:29)
[2016-09-11] MEDS: ASCORBIC ACID 500 MG TAB PO SCH (08:29)
[2016-09-11] MEDS: PANTOPRAZOLE SOD 20 MG DELAYED RELEASE TAB PO SCH (08:29)
[2016-09-11] MEDS: FOLIC ACID 1 MG TAB PO SCH (08:30)
[2016-09-11] MEDS: SODIUM CHLORIDE 0.9% FLUSH 10 ML FLUSH IV FLUSH SCH (08:30)
[2016-09-11] MEDS: ATORVASTATIN 40 MG TAB PO SCH (08:30)
[2016-09-11] MEDS: LACTOBACILLUS ACIDOPHILUS TAB PO SCH ×2 (08:30→13:00)
--- NOTE | 2016-09-11 08:49 | PD.CARD.PN ---
Subjective Subjective Remarks no complaints no ovenight events chest pain free Objective Medications Current Medications Medications (Trade) Dose Ordered Sig/Angelica Route Start Time Stop Time Status Last Admin (NS Flush) 2 ml UNSCH PRN IV FLUSH 09/10/16 06:30 (NS Flush) 2 ml BID IV FLUSH 09/10/16 09:00 09/11/16 08:30 (Zofran Inj) 4 mg Q6H PRN IVP 09/10/16 12:00 (Dulcolax Supp) 10 mg DAILY PRN RECTAL 09/10/16 09:00 (Tylenol) 650 mg Q6H PRN PO 09/10/16 08:00 ([place] 5-325 Mg) 1 tab Q4H PRN PO 09/10/16 08:00 09/10/16 08:38 (Morphine Inj) 2 mg Q3H PRN IV 09/10/16 07:00 09/10/16 08:38 (Vitamin C) 500 mg DAILY PO 09/10/16 09:00 09/11/16 08:29 (Ecotrin Ec) 81 mg DAILY PO 09/10/16 09:00 09/11/16 08:29 (Tenormin) 25 mg DAILY PO 09/10/16 09:00 09/11/16 08:27 (Vitamin D3) 400 units DAILY PO 09/10/16 09:00 09/11/16 08:29 (Zetia) 10 mg DAILY PO 09/10/16 09:00 09/11/16 08:29 (Proscar) 5 mg HS PO 09/10/16 21:00 09/10/16 21:53 (Folate) 1 mg DAILY PO 09/10/16 09:00 09/11/16 08:30 (Synthroid) 25 mcg DAILY@06 PO 09/10/16 09:00 09/11/16 05:57 (Protonix) 20 mg DAILY PO 09/10/16 09:00 09/11/16 08:29 (Ranexa) 500 mg BID PO 09/10/16 09:00 09/11/16 08:29 (Flomax) 0.4 mg HS PO 09/10/16 21:00 09/10/16 21:53 (Lipitor) 40 mg DAILY PO 09/10/16 09:00 09/11/16 08:30 (Brilinta) 90 mg BID PO 09/11/16 09:00 09/11/16 08:29 (Atropine Inj) 0.5 mg UNSCH PRN IV 09/10/16 12:15 (Zofran Inj) 4 mg Q4H PRN IV 09/10/16 12:15 (Imdur) 30 mg DAILY@07 PO 09/11/16 07:00 09/11/16 05:57 (Lactinex) 1 tab TID PO 09/11/16 09:00 09/11/16 08:30 Vital Signs / I&O Vital Signs Date Time Temp Pulse Resp B/P Pulse Ox O2 Delivery O2 Flow Rate FiO2 09/11/16 06:00 81 09/11/16 05:00 70 09/11/16 04:00 74 09/11/16 04:00 97.8 75 16 112/64 97 09/11/16 03:00 74 09/11/16 02:00 72 09/11/16 01:00 66 09/11/16 00:00 98.2 67 16 110/64 98 09/11/16 00:00 78 09/10/16 23:00 66 09/10/16 22:00 68 09/10/16 21:00 70 09/10/16 20:00 68 09/10/16 20:00 97.6 95 16 121/60 99 09/10/16 19:00 68 09/10/16 18:00 66 09/10/16 17:00 74 09/10/16 16:00 98.2 71 18 116/54 97 09/10/16 16:00 65 09/10/16 15:00 64 09/10/16 14:00 70 09/10/16 13:00 76 09/10/16 12:00 72 09/10/16 12:00 98.1 81 16 124/69 96 09/10/16 10:00 16 09/10/16 09:00 76 09/10/16 08:47 16 I/O 09/10/16 09/10/16 09/10/16 09/11/16 09/11/16 09/11/16 07:00 15:00 23:00 07:00 15:00 23:00 Intake Total 1260 ml 240 ml Output Total 600 ml 601 ml Balance 660 ml -361 ml Intake Oral 360 ml 240 ml IV Total 900 ml Output Urine Total 600 ml 600 ml Stool Total 1 ml # Bowel Movements 0 Physical Exam GENERAL: Well-nourished, well-developed patient. SKIN: Warm and dry. HEAD: Normocephalic. EYES: No scleral icterus. No injection or drainage. NECK: Supple, trachea midline. No JVD or lymphadenopathy. CARDIOVASCULAR: Regular rate and rhythm 2/6 ROMA RESPIRATORY: Breath sounds equal bilaterally. No accessory muscle use. GASTROINTESTINAL: Abdomen soft, non-tender, nondistended. EXTREMITIES: No cyanosis, or edema. NEUROLOGICAL: Awake, alert, and oriented x 3. Non-focal. Laboratory Laboratory Tests Test 09/10/16 09/10/16 09/10/16 09/10/16 13:25 16:34 16:35 20:45 White Blood Count 7.4 TH/MM3 Red Blood Count 3.63 MIL/MM3 Hemoglobin 13.1 GM/DL Hematocrit 37.5 % Mean Corpuscular Volume 103.3 FL Mean Corpuscular Hemoglobin 36.2 PG Mean Corpuscular Hemoglobin 35.1 % Concent Red Cell Distribution Width 14.9 % Platelet Count 168 TH/MM3 Mean Platelet Volume 7.1 FL Prothrombin Time 11.6 SEC Prothromb Time International 1.0 RATIO Ratio Activated Partial 28.6 SEC Thromboplast Time Troponin I 0.11 NG/ML 0.11 NG/ML Thyroid Stimulating Hormone 1.850 uIU/ML 3rd Gen Stool C. difficile Toxin (PCR) NEGATIVE Stl C. difficile Toxin PRESUMPTIVE Epiderm 027 NEGATIVE Test 09/11/16 05:40 White Blood Count 6.5 TH/MM3 Red Blood Count 3.49 MIL/MM3 Hemoglobin 12.9 GM/DL Hematocrit 36.1 % Mean Corpuscular Volume 103.2 FL Mean Corpuscular Hemoglobin 36.9 PG Mean Corpuscular Hemoglobin 35.7 % Concent Red Cell Distribution Width 15.1 % Platelet Count 153 TH/MM3 Mean Platelet Volume 7.2 FL Neutrophils (%) (Auto) 63.5 % Lymphocytes (%) (Auto) 21.8 % Monocytes (%) (Auto) 12.8 % Eosinophils (%) (Auto) 1.7 % Basophils (%) (Auto) 0.2 % Neutrophils # (Auto) 4.1 TH/MM3 Lymphocytes # (Auto) 1.4 TH/MM3 Monocytes # (Auto) 0.8 TH/MM3 Eosinophils # (Auto) 0.1 TH/MM3 Basophils # (Auto) 0.0 TH/MM3 CBC Comment DIFF FINAL Differential Comment Sodium Level 142 MEQ/L Potassium Level 3.4 MEQ/L Chloride Level 105 MEQ/L Carbon Dioxide Level 28.0 MEQ/L Anion Gap 9 MEQ/L Blood Urea Nitrogen 13 MG/DL Creatinine 0.91 MG/DL Estimat Glomerular Filtration 81 ML/MIN Rate Random Glucose 85 MG/DL Calcium Level 8.5 MG/DL Total Bilirubin 1.5 MG/DL Aspartate Amino Transf 21 U/L (AST/SGOT) Alanine Aminotransferase 20 U/L (ALT/SGPT) Alkaline Phosphatase 72 U/L Total Creatine Kinase 48 U/L Troponin I 0.32 NG/ML Total Protein 5.4 GM/DL Albumin 3.1 GM/DL Imaging Last Impressions Chest X-Ray 09/10/16 0452 Signed Impressions: Service Date/Time: Saturday, September 10, 2016 04:55 - CONCLUSION: 1. Status post CABG. 2. No infiltrate. Willian Posadas MD Assessment and Plan Problem List: (1) CAD (coronary artery disease) Assessment and Plan: s/p high risk PCI to SVG's with AMIE DAPT changed to ASA and Brillinta Cont aggressive medical therapy for CAD moderate on ECHO Replete K+ Stable to d/c from CV standpoint F/U with Dr. Becker in a couple of weeks (2) NSTEMI (non-ST elevated myocardial infarction) (3) Abnormal nuclear stress test (4) Chest pain (5) Hypertension (6) Hyperlipidemia Gary Pelaez MD Sep 11, 2016 08:49
[2016-09-11] MEDS ORDERED: TICAGRELOR 90 MG TAB PO SCH (09:00)
[2016-09-11] MEDS ORDERED: POTASSIUM CHLORIDE 20 MEQ CONTROLLED RELEASE TAB PO ONE (10:15)
--- NOTE | 2016-09-11 11:44 | EKG ---
Date Performed: 09/10/2016 Time Performed: 17:08:34 PTAGE: 76 years EKG: Sinus rhythm with 1st degree A-V block Possible inferior infarct - age undetermined Abnormal ECG PREVIOUS TRACING : 09/10/2016 12.26 DOCTOR: Gary Pelaez Interpretating Date/Time 09/11/2016 11:39:25
--- NOTE | 2016-09-11 11:50 | EKG ---
Date Performed: 09/10/2016 Time Performed: 12:26:46 PTAGE: 76 years EKG: Sinus rhythm with 1st degree A-V block Possible inferior infarct - age undetermined Abnormal ECG NO PREVIOUS TRACING DOCTOR: Gary Pelaez Interpretating Date/Time 09/11/2016 11:44:58
[2016-09-11] MEDS ORDERED: ATEN25TA PO (14:28)
--- NOTE | 2016-09-11 14:28 | HHI.DCPOC ---
Discharge Care Plan Diagnosis: (1) CAD (coronary artery disease) (2) Diarrhea (3) Abnormal nuclear stress test (4) NSTEMI (non-ST elevated myocardial infarction) (5) Hypertension (6) Chest pain (7) Hypothyroidism (8) Hyperlipidemia (9) BPH (benign prostatic hypertrophy) Goals to Promote Your Health * To prevent worsening of your condition and complications * To maintain your health at the optimal level Directions to Meet Your Goals Take your medications as prescribed Follow your dietary instruction Follow activity as directed Keep your appointments as scheduled Take your immunizations and boosters as scheduled If your symptoms worsen call your PCP, if no PCP go to Urgent Care Center or Emergency Room Smoking is Dangerous to Your Health. Avoid second hand smoke Call the 24-hour hour crisis hotline for domestic abuse at Heath Hopper MD Sep 11, 2016 14:28
[2016-09-11] MEDS ORDERED: ISOS30TA3 PO (14:31)
[2016-09-11] MEDS ORDERED: BRIL90TA PO (14:31)
[2016-09-11] MEDS ORDERED: LACT PO (14:31)
--- NOTE | 2016-09-11 14:58 | HHI.DS ---
Discharge Summary Admission Date Sep 10, 2016 at 06:25 Discharge Date: Sep 11, 2016 Admitting Diagnosis unstable angina, intermediate troponin i (1) Chest pain ICD Code: R07.9 Diagnosis: Principal (2) NSTEMI (non-ST elevated myocardial infarction) ICD Code: I21.4 Diagnosis: Principal (3) Hypertension ICD Code: I10 Diagnosis: Secondary (4) Hyperlipidemia ICD Code: E78.5 Diagnosis: Secondary (5) Hypothyroidism ICD Code: E03.9 Diagnosis: Secondary (6) BPH (benign prostatic hypertrophy) ICD Code: N40.0 Diagnosis: Secondary (7) Abnormal nuclear stress test ICD Code: R94.39 Diagnosis: Principal (8) Carotid artery stenosis ICD Code: I65.29 Diagnosis: Secondary (9) Diarrhea ICD Code: R19.7 Diagnosis: Principal Procedures sp cardiac catheterization with stent placement on 09/10/16 Brief History - From Admission This is a 76-year-old male with past medical history significant for CAD status post CABG 5, moderate aortic stenosis, hypertension, hyperlipidemia, carotid stents who presents to [facility] complaining of chest discomfort for the past couple days. Chest pain is associated with nausea and not relieved by nitroglycerin. The patient follows with Dr Becker. Apparently the patient recently had a chemical stress test on and he reports that he failed it. Patient already had an appointment with Dr. Howell next used a schedule for cardiac catheterization, however he reports that this past Saturday he began expressing chest pain and nausea. Patient reports that chest pain resolved with nitroglycerin, however since then he has had persistent nausea. Patient states has also diarrhea since . states was prescribed antibiotics two weeks ago for shingles. CBC/BMP: 09/11/16 0540 09/11/16 0540 Significant Findings Laboratory Tests Test 09/10/16 09/10/16 09/10/16 09/10/16 05:00 08:30 13:25 16:34 Red Blood Count 4.15 MIL/MM3 3.63 MIL/MM3 (4.50-5.90) (4.50-5.90) Mean Corpuscular Volume 103.1 FL 103.3 FL (80.0-100.0) (80.0-100.0) Mean Corpuscular Hemoglobin 36.0 PG 36.2 PG (27.0-34.0) (27.0-34.0) Monocytes (%) (Auto) 15.0 % (0.0-8.0) Monocytes # (Auto) 1.2 TH/MM3 (0-0.9) Potassium Level 3.4 MEQ/L (3.5-5.1) Estimat Glomerular Filtration 63 ML/MIN (>89) Rate Random Glucose 112 MG/DL (74-106) Total Bilirubin 1.9 MG/DL (0.2-1.0) Troponin I 0.07 NG/ML 0.11 NG/ML 0.11 NG/ML (0.02-0.05) (0.02-0.05) (0.02-0.05) Urine Specific [place] 1.036 (1.002-1.035) Urine Protein 30 mg/dL (NEG-TRACE) Urine Ketones 10 mg/dL (NEG) Urine Mucus MANY /lpf (OCC) Hematocrit 37.5 % (39.0-51.0) Test 09/11/16 05:40 Red Blood Count 3.49 MIL/MM3 (4.50-5.90) Hemoglobin 12.9 GM/DL (13.0-17.0) Hematocrit 36.1 % (39.0-51.0) Mean Corpuscular Volume 103.2 FL (80.0-100.0) Mean Corpuscular Hemoglobin 36.9 PG (27.0-34.0) Monocytes (%) (Auto) 12.8 % (0.0-8.0) Potassium Level 3.4 MEQ/L (3.5-5.1) Estimat Glomerular Filtration 81 ML/MIN (>89) Rate Total Bilirubin 1.5 MG/DL (0.2-1.0) Troponin I 0.32 NG/ML (0.02-0.05) Total Protein 5.4 GM/DL (6.4-8.2) Albumin 3.1 GM/DL (3.4-5.0) Imaging Last Impressions Chest X-Ray 09/10/16 [id number] Signed Impressions: Service Date/Time: Saturday, September 10, 2016 04:55 - CONCLUSION: 1. Status post CABG. 2. No infiltrate. Willian Posadas MD PE at Discharge GENERAL: AAOx3, lying in bed. NAD. No respiratory distress. SKIN: Warm and dry. HEAD: Normocephalic. EYES: No scleral icterus. No injection or drainage. NECK: Supple, trachea midline. No JVD or lymphadenopathy. CARDIOVASCULAR: Regular rate and rhythm with a III/ holosystolic murmur. No rubs or gallops. RESPIRATORY: Breath sounds equal bilaterally. No accessory muscle use. GASTROINTESTINAL: Abdomen soft, non-tender, nondistended. MUSCULOSKELETAL: No cyanosis, or edema. BACK: Nontender without obvious deformity. No CVA tenderness. Pt update on day of discharge denies cp/sob. diarrhea resolving. Denies nausea, eating well. Hospital Course The patient was admitted to the cardiac floor, treated with heparin drip, aspirin, beta homer and JOSE inhibitor as well as statin. Patient was seen by campus manager who recommended a cardiac catheterization which was done on and showed severe three-vessel disease treated with successful PCI of a drug- eluting stent to the saphenous vein graft to first obtuse marginal. Patient also was found to have moderate aortic stenosis on the cardiac catheterization. The patient's chest pain has resolved and has been cleared by cardiology to be discharged home. We'll discharge on aspirin, , JOSE inhibitor and beta homer and statin. The patient also complained of diarrhea and antibiotic 2 weeks ago. C. difficile PCR was checked and negative. The patient's diarrhea is improving. Patient was discharged home on probiotics. Pt Condition on Discharge: Stable Discharge Disposition: Discharge Home Discharge Time: <= 30 minutes Discharge Instructions DIET: Follow Instructions for: Heart Healthy Diet Activities you can perform: Regular-No Restrictions Activities to Avoid: Strenuous Activity Follow up Referrals: Cardiology - 2 Weeks with Krystal Dumont MD New Medications: Atenolol (Atenolol) 25 Mg Tab 25 MG PO DAILY Blood Pressure Management #30 TAB Isosorbide Mononitrate ER (Isosorbide Mononitrate ER) 30 Mg Brunilda 30 MG PO DAILY@07 cad #31 TAB Lactobacillus Acidophilus (Acidophilus/l-Sporogenes) 1 Tab Tab 1 TAB PO TID Diarrhea #30 TAB Ticagrelor (Brilinta) 90 Mg Tab 90 MG PO BID cad #62 TAB Continued Medications: Ascorbic Acid (Ascorbic Acid) 500 Mg Tab 500 MG PO DAILY Nutritional Supplement TAB Aspirin (Aspirin) 81 Mg Tabdr 81 MG PO DAILY Blood Clot Prevention TAB Cholecalciferol (Vitamin D) 400 Unit Tab 1 TAB PO DAILY Nutritional Supplement Cyanocobalamin (B-12) 1,000 Mcg Cap 1000 MCG PO DAILY Nutritional Supplement #1 Ref 0 BOTTLE Ezetimibe (Ezetimibe) 10 Mg Tab 10 MG PO DAILY Cholesterol Management #30 Ref 0 TAB Finasteride (Finasteride) 5 Mg Tab 5 MG PO HS Do not crush. Manage Prostate Problems #30 Ref 0 TAB Folic Acid (Folate) 1 Mg Tab 1 MG PO DAILY Nutritional Supplement Ref 0 TAB Levothyroxine (Levothyroxine) 25 Mcg Tab 25 MCG PO DAILY Thyroid #30 Ref 0 TAB Niacin ER (Niaspan) 1,000 Mg Tab 1000 MG PO HS Cholesterol Management #30 Ref 0 TAB Pantoprazole (Pantoprazole) 20 Mg Tab 20 MG PO DAILY Reflux #30 Ref 0 TAB Ranolazine ER 12 HR (Ranexa ER 12 HR) 500 Mg Tab 500 MG PO BID Chest Pain #60 Ref 0 TAB Rosuvastatin (Rosuvastatin) 20 Mg Tab 20 MG PO DAILY Cholesterol Management #30 Ref 0 TAB Tamsulosin (Tamsulosin) 0.4 Mg Cap 0.4 MG PO HS Manage Prostate Problems #30 Ref 0 CAP Discontinued Medications: Atenolol (Atenolol) 50 Mg Tab 25 MG PO DAILY Blood Pressure Management #30 Ref 0 TAB Clopidogrel (Clopidogrel) 75 Mg Tab 75 MG PO DAILY Blood Clot Prevention #30 Ref 0 TAB Hydrochlorothiazide (Hydrochlorothiazide) 12.5 Mg Cap 12.5 MG PO DAILY Blood Pressure Management #60 Ref 0 CAP Heath Hopper MD Sep 11, 2016 14:57
== END 2016-09-11 15:51 | disposition home or self-care (01) | DRG 246 ==
LOC: NEPE 04:32 → NEDA 06:25 → HCIS 08:03
PROVIDERS: ADMIT Hospitalist; ATTEND Hospitalist
PROC: 4A023N8 Measurement of Cardiac Sampling and Pressure, Bilateral, Percutaneous Approach (ICD-10-PCS; 2016-09-10)
PROC: B2111ZZ Fluoroscopy of Multiple Coronary Arteries using Low Osmolar Contrast (ICD-10-PCS; 2016-09-10)
PROC: B2131ZZ Fluoroscopy of Multiple Coronary Artery Bypass Grafts using Low Osmolar Contrast (ICD-10-PCS; 2016-09-10)
PROC: B41F1ZZ Fluoroscopy of Right Lower Extremity Arteries using Low Osmolar Contrast (ICD-10-PCS; 2016-09-10)
PROC: 027137Z Dilation of Coronary Artery, Two Arteries with Four or More Drug-eluting Intraluminal Devices, Percutaneous Approach (ICD-10-PCS; principal; 2016-09-10 08:45)
DX: I21.4 Non-ST elevation (NSTEMI) myocardial infarction (principal); I35.0 Nonrheumatic aortic (valve) stenosis; I10 Essential (primary) hypertension; I25.710 Atherosclerosis of autologous vein coronary artery bypass graft(s) with unstable angina pectoris; I25.110 Atherosclerotic heart disease of native coronary artery with unstable angina pectoris; E78.5 Hyperlipidemia, unspecified; R19.7 Diarrhea, unspecified; K21.9 Gastro-esophageal reflux disease without esophagitis; N40.0 Benign prostatic hyperplasia without lower urinary tract symptoms; E03.9 Hypothyroidism, unspecified; M19.90 Unspecified osteoarthritis, unspecified site; H91.90 Unspecified hearing loss, unspecified ear; I44.0 Atrioventricular block, first degree; Z79.82 Long term (current) use of aspirin; Z87.442 Personal history of urinary calculi; Z95.1 Presence of aortocoronary bypass graft
CPT/HCPCS: 71010; 80053; 81001; 82272; 82550; 82810; 83605; 83690; 83735; 83880; 84443; 84484; 85002; 85025; 85027; 85610; 85730; 87205; 87328; 87329; 87493; 87506; 92937; 92938; 93005; 93306; 93457; 96361; 96374; C1725; C1760; C1769; C1874; C1887; C1893; G0269; J1644; J2250; J2270; J2405; J2720; J3010; J7030; J7050; Q9967

== ENCOUNTER 2018-06-12 12:15 | Inpatient (IN) ==
[2018-06-12] MEDS ORDERED: Metoprolol Tartrate 25 MG Tablet PO ONE (13:15)
[2018-06-12] MEDS ORDERED: Sodium Chlor 0.9% Inj 500 ML IV.CONT ONE (13:15)
[2018-06-12] MEDS ORDERED: Chlorhexidine Gluconate 2% 1 Pack (2 Cloths) TOPICAL ONE (13:15)
[2018-06-12] MEDS ORDERED: ceFAZolin Inj 1 GM in Sodium Chlor 0.9% Inj 100 ML IV.SIG SCH (14:00)
[2018-06-12] MEDS ORDERED: ceFAZolin 1 GM Premix Inj 1 GM/50 ML PIGGYBACK IV.SIG ONE (16:01)
--- NOTE | 2018-06-12 16:29 | P.OP ---
- Preoperative Diagnosis (1) Diverticulitis - Postoperative Diagnosis (1) Diverticulitis Date of procedure: 06/12/18 Procedure: Cystoscopy with bilateral ureteral catheter placement Anesthesia: GETA Surgeon: Krzysztof Rey DO Estimated blood loss (mL): 0 Pathology: none sent Operation and Findings: 78-year-old male with history of diverticulitis. Requests were made for bilateral ureteral catheter placement. Patient was placed on the operating table in the dorsolithotomy position, prepped and draped you sterile fashion, received preprocedure antibiotics and general endotracheal tube anesthesia was administered. 22 Jamaican cystoscope was inserted the bladder saeed cystoscopy did not reveal any abnormalities. The left ureteral orifice was identified and a 5 Jamaican Traore catheter was inserted in the left ureteral orifice without difficulty. This was again repeated on the right side without difficulty. The Traore was inserted and the catheters were attached to the Traore. The patient tolerated the procedure well.
[2018-06-12] MEDS ORDERED: HYDROmorphone PF Inj 2 MG/ML Vial ONE (16:41)
[2018-06-12] MEDS ORDERED: fentaNYL Citrate Inj 100 MCG/2 ML Ampul ONE ×2 (17:40→18:22)
[2018-06-12] MEDS ORDERED: Sugammadex Inj 200 MG/2 ML Vial IV.PUSH ONE (17:49)
[2018-06-12] MEDS ORDERED: Potassium Chlor 20 mEq Premix 20 MEQ/100 ML PIGGYBACK IV.SIG PRN (18:03)
[2018-06-12] MEDS ORDERED: Potassium Chlor 40 mEq Premix 40 MEQ/100 ML PIGGYBACK IV.SIG PRN (18:03)
[2018-06-12] MEDS ORDERED: *HYDROmorphone PF Inj 1 MG/ML Ampul PERIprocedural Use ONLY ONE ×4 (18:27→19:11)
[2018-06-12] MEDS ORDERED: hydrALAZINE HCl Inj 20 MG/ML Vial ONE (18:32)
[2018-06-12] MEDS ORDERED: Zolpidem Tartrate 5 MG Tablet PO PRN (18:34)
[2018-06-12] MEDS ORDERED: Naloxone Inj 0.4 MG/ML Vial IV.PUSH PRN (18:47)
[2018-06-12] MEDS ORDERED: KCL 20 mEq/D5W/LR Inj 1,000 ML ONE (18:58)
[2018-06-12] MEDS: KCL 20 mEq/D5W/LR Inj 1,000 ML IV.CONT SCH (18:58)
[2018-06-12] MEDS: Morphine Inj 30 MG/30 ML PCA.VIAL PCA PRN (19:03)
[2018-06-12] MEDS ORDERED: Morphine Inj 30 MG/30 ML PCA.VIAL PCA ONE (19:03)
[2018-06-12 19:07] LABS: Baso % (Auto) 0.3 % (0.0-2.0); Eos % (Auto) 0.4 % (0.0-4.0); Hematocrit 38.5 % (39.0-51.0); Hemoglobin 12.6 gm/dL (13.0-17.0); Lymph # (Auto) 0.9 th/mm3 (1.0-4.8); Lymph % (Auto) 6.9 % (9.0-44.0); Mean Corpuscular HGB Conc 32.7 % (32.0-36.0); Mean Corpuscular Hemoglobin 33.2 pg (27.0-34.0); Mean Corpuscular Volume 101.7 fL (80.0-100.0); Mean Platelet Volume 6.8 fL (7.0-11.0); Mono # (Auto) 0.7 th/mm3 (0.0-0.9); Mono % (Auto) 5.3 % (0.0-8.0); Neut # (Auto) 11.2 th/mm3 (1.8-7.7); Neut % (Auto) 87.1 % (16.0-70.0); Platelet Count 196 th/mm3 (150-450); Red Blood Count 3.79 mil/mm3 (4.50-5.90); Red Cell Distribution Width 14.2 % (11.6-17.2); White Blood Count 12.9 th/mm3 (4.0-11.0)
[2018-06-12 19:33] LABS: Calcium 8.6 mg/dL (8.5-10.1); Carbon Dioxide 24.6 meq/L (21.0-32.0); Potassium 3.7 meq/L (3.5-5.1)
[2018-06-12] MEDS: Isosorbide Mononitrate 30 MG ER 24HR Tablet (Imdur) PO SCH (20:33)
--- NOTE | 2018-06-12 22:28 | MP ---
cc: Moose Esposito MD,Krystal Seals,Heather STEPHEN DATE OF OPERATION: 06/12/2018 PREOPERATIVE DIAGNOSIS: Diverticulitis with pericolonic abscess. POSTOPERATIVE DIAGNOSIS: Diverticulitis with pericolonic abscess. Colon polyp in Cecum and at 30cm PROCEDURE PERFORMED: 1. Left colectomy with colorectal anastomosis. 2. Mobilization of the splenic flexure. 3. Omental flap. 4. Intraoperative colonoscopy. ANESTHESIA: General endotracheal. SURGEON: Moose Esposito MD RISK AND INSURANCE CONSULTANT: Harris Winters MD ESTIMATED BLOOD LOSS: 200 mL. OPERATING TIME: One hour and 30 minutes. OPERATIVE FINDINGS: This patient was originally seen in the hospital with a recurrent bout of diverticulitis with a pericolonic abscess. The patient has had multiple attacks of diverticulitis and has had an ongoing abscess in the pericolonic region for probably the last 6 months or more. During the last hospitalization, a repeat CT scan seemed to show that the abscess contained air some of the time and fluid some of the time, indicating that the colonic diverticular perforation was probably a modest size. Nevertheless, the patient was maintained on antibiotics for a while. He was discharged from the hospital from that hospitalization and it has been at least 4-6 weeks since that hospitalization. 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 At surgery, he was found to have a fairly short segment of diverticular disease with chronic inflammation and induration with a pericolonic sigmoid abscess in the mesentery of the sigmoid which was approximately 3 cm in diameter. This cavity and mesenteric abscess along with the colon was resected en bloc without entering the abscess or having any spillage. The full left colon was mobilized in a descending colon to rectal anastomosis was done. The remainder of the abdominal exploration including the liver was palpably normal. There were adhesions in the right upper quadrant from a previous open cholecystectomy. The stomach was normal, as was the remainder of the colon and small bowel. Dr. Krzysztof Rey placed bilateral ureteral catheters for facilitation of identification of the ureters and the ureters were identified and protected at all times. Dr. Winters did an intraoperative colonoscopy after the colon segment was removed and a cecal polyp of approximately 7 mm, pedunculated, was seen and a polyp at about 30 cm was seen as well in the previous descending colon. These will be removed at a repeat colonoscopy at a later date. OPERATIVE TECHNIQUE: The patient was placed on the table in the supine position. After adequate general endotracheal anesthesia, the legs were placed in the perineal lithotomy position and the abdomen and perineum were prepped and draped in usual manner. A transverse infraumbilical skin incision was made and carried down through subcutaneous tissue. The rectus muscles were divided with electrocautery and the peritoneal cavity was entered with the above-mentioned findings. Dr. Krzysztof Rey placed bilateral ureteral catheters. We identified the sigmoid colon with its inflammation and its mesentery stuck down to the left pelvic sidewall and it was mobilized along its peritoneal reflection. The descending colon was likewise mobilized, as was the splenic flexure and transverse colon, mobilizing the omentum off of the transverse colon for use as an omental flap in the pelvis. Once this colon was mobilized, the superior rectal vessels were doubly clamped, cut and doubly ligated with 0 Vicryl ligatures and then the inferior mesenteric vein was likewise clamped, cut and ligated. Retrorectal dissection was done to the pelvic floor and then laterally, the pelvic peritoneum was incised bilaterally and the lateral stalks were divided down to the cul-de-sac. The peritoneum over the cul-de-sac was incised, but the full cul-de-sac anteriorly posterior to the prostate gland was not developed. At approximately the junction of the mid to upper rectum, the mesorectum was clamped, cut and ligated and cleared from the rectum and a pursestring stapling device was used on the rectum at its mid to upper junction. The rectum was divided at this point. It was of small caliber, but would allow a 29 Ethicon EEA stapling instrument. Once this was done, we ascertained the length of a sigmoid to rectal anastomosis. However, the sigmoid colon above the area of the diverticular disease was fairly thickened with hypertrophic tinea and was felt to be not an optimal quality colon. For this reason, the full left colon was mobilized, clamping, cutting and ligating the left colic vessels up to, but not including the middle colic vessels. Marginal vessel was protected at all times and the dissection was taken up to the marginal vessel distal to the middle colic vessels. This allowed further mobilization of the descending colon down to the pelvis, which was of good quality and size. The bowel was not thickened and allowed the use of the Ethicon 29 EEA instrument. The pursestring stapling device was applied after measurement of the distance and the bowel was divided. The anvil of the 29 EEA was placed in the proximal bowel and the pursestring was tied. Dr. Winters then went below and placed the EEA instrument transanally. The distal pursestring was tied and the instrument was connected, closed and fired, creating a circular anastomosis. There was no tension on the anastomosis and the blood supply was excellent. Both donuts were intact. Next, Dr. Winters did a colonoscopy to the cecum with above-mentioned findings of a 7 mm cecal polyp between the appendix and the ileocecal valve and another 5-7 mm polyp at about 30 cm in the descending colon. Next, air was insufflated into the rectum with saline solution in the pelvis and no air leaks were identified. Again, the anastomosis was inspected several times, noting that there was no tension and the blood supply was excellent. The air was decompressed from the colon. Next, the omentum was brought down the left colic gutter and placed over the anastomosis. The pelvis and abdominal cavity were irrigated with 3 liters of saline solution and aspirated dry. Hemostasis was maintained throughout with electrocautery and ligature. The small bowel was then replaced in the abdominal cavity in an regional production manager manner. The abdominal cavity was closed in layers using double-stranded #1 PDS for the posterior rectus sheath and double-stranded #1 PDS for the anterior rectus sheath, irrigating the layers between those muscles with 1 liter of saline solution. After the anterior rectus sheath was closed, the subcutaneous tissue was likewise irrigated with a liter of saline solution and aspirated dry and the skin was closed with running 3-0 Vicryl subcuticular suture. It should be mentioned that a flat Jose Luis drain was placed in the pelvis posterior to the colorectal anastomosis and brought out through a separate stab wound in the right lower quadrant prior to closure. Dressings were applied. Sponge, needle and instrument counts were reported as correct. The estimated blood loss was 200 mL. Operating time was 1 hour and 30 minutes. The patient tolerated the procedure well and left the operating room in good condition. MD JULIANA Villalobos/ingrid , 08:48 PM , 09:00 PM ELIEL
[2018-06-12] MEDS: Ranolazine 500 MG 12HR ER Tablet PO SCH (22:39)
[2018-06-13] MEDS: KCL 20 mEq/D5W/LR Inj 1,000 ML IV.CONT SCH ×5 (01:03→16:58)
[2018-06-13] MEDS: ceFAZolin 2 GM Premix Inj 2 GM/50 ML PIGGYBACK IV.SIG SCH ×3 (02:00→19:37)
[2018-06-13] MEDS: Levothyroxine 50 MCG Tablet PO SCH (05:00)
[2018-06-13 05:35] LABS: Baso % (Auto) 0.1 % (0.0-2.0); Hematocrit 37.8 % (39.0-51.0); Hemoglobin 12.7 gm/dL (13.0-17.0); Lymph # (Auto) 0.8 th/mm3 (1.0-4.8); Lymph % (Auto) 5.5 % (9.0-44.0); Mean Corpuscular HGB Conc 33.6 % (32.0-36.0); Mean Corpuscular Hemoglobin 33.9 pg (27.0-34.0); Mean Corpuscular Volume 100.9 fL (80.0-100.0); Mean Platelet Volume 7.2 fL (7.0-11.0); Mono # (Auto) 1.2 th/mm3 (0.0-0.9); Mono % (Auto) 8.3 % (0.0-8.0); Neut # (Auto) 12.7 th/mm3 (1.8-7.7); Neut % (Auto) 86.1 % (16.0-70.0); Platelet Count 202 th/mm3 (150-450); Red Blood Count 3.74 mil/mm3 (4.50-5.90); Red Cell Distribution Width 14.3 % (11.6-17.2); White Blood Count 14.7 th/mm3 (4.0-11.0)
[2018-06-13 06:00] LABS: Calcium 8.6 mg/dL (8.5-10.1); Potassium 4.3 meq/L (3.5-5.1)
[2018-06-13] MEDS: Isosorbide Mononitrate 30 MG ER 24HR Tablet (Imdur) PO SCH (08:56)
[2018-06-13] MEDS: Folic Acid 1 MG Tablet PO SCH (08:56)
[2018-06-13] MEDS: Pantoprazole Inj 40 MG Vial IV.PUSH SCH (08:56)
[2018-06-13] MEDS: Ezetimibe 10 MG Tablet PO SCH (08:57)
[2018-06-13] MEDS: Atenolol 25 MG Tablet PO SCH (08:57)
--- NOTE | 2018-06-13 16:18 | P.PNCS ---
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 He uses oxycodone 10mg PO BID for chronic back pain. No N or V. Was up OOB today. Objective Result Diagrams: 06/13/18 04:38 06/13/18 04:38 Objective Remarks: Abd: soft,dressing dry. Other Ureteral cath removed. Assessment and Plan - Plan Transfer to N D/C tele Restart Brilinta today Ureteral cath removed Add Roxicodone 10 Q4HR. D/C Hydrocodone. CLD.
[2018-06-13] MEDS: Morphine Inj 30 MG/30 ML PCA.VIAL PCA PRN (16:50)
[2018-06-13] MEDS ORDERED: ceFAZolin 2 GM Premix Inj 2 GM/50 ML PIGGYBACK IV.SIG SCH (19:15)
[2018-06-13] MEDS: Ranolazine 500 MG 12HR ER Tablet PO SCH (21:19)
[2018-06-14] MEDS: KCL 20 mEq/D5W/LR Inj 1,000 ML IV.CONT SCH ×3 (01:00→13:40)
[2018-06-14] MEDS: Levothyroxine 50 MCG Tablet PO SCH (05:13)
[2018-06-14 08:53] LABS: Baso % (Auto) 0.2 % (0.0-2.0); Eos # (Auto) 0.1 th/mm3 (0.0-0.4); Eos % (Auto) 0.6 % (0.0-4.0); Hematocrit 33.3 % (39.0-51.0); Hemoglobin 11.3 gm/dL (13.0-17.0); Lymph # (Auto) 2.3 th/mm3 (1.0-4.8); Lymph % (Auto) 15.5 % (9.0-44.0); Mean Corpuscular HGB Conc 33.9 % (32.0-36.0); Mean Corpuscular Hemoglobin 34.2 pg (27.0-34.0); Mean Platelet Volume 7.2 fL (7.0-11.0); Mono # (Auto) 1.7 th/mm3 (0.0-0.9); Mono % (Auto) 11.4 % (0.0-8.0); Neut # (Auto) 10.9 th/mm3 (1.8-7.7); Neut % (Auto) 72.3 % (16.0-70.0); Platelet Count 191 th/mm3 (150-450); Red Cell Distribution Width 14.6 % (11.6-17.2); White Blood Count 15.1 th/mm3 (4.0-11.0)
[2018-06-14] MEDS: Morphine Inj 30 MG/30 ML PCA.VIAL PCA PRN (09:07)
[2018-06-14 09:15] LABS: Anion Gap 3 meq/L (5-15); Blood Urea Nitrogen 10 mg/dL (7-18); Calcium 8.6 mg/dL (8.5-10.1); Carbon Dioxide 32.9 meq/L (21.0-32.0); Chloride 104 meq/L (98-107); Glomerular Filtration Rate Greater Than 89 mL/min (>89); Glucose,Random 114 mg/dL (74-106); Potassium 4.5 meq/L (3.5-5.1); Sodium 140 meq/L (136-145)
[2018-06-14] MEDS: Atenolol 25 MG Tablet PO SCH (09:27)
[2018-06-14] MEDS: Folic Acid 1 MG Tablet PO SCH (09:27)
[2018-06-14] MEDS: Pantoprazole Inj 40 MG Vial IV.PUSH SCH (09:28)
[2018-06-14] MEDS: Ezetimibe 10 MG Tablet PO SCH (09:28)
[2018-06-14] MEDS: Isosorbide Mononitrate 30 MG ER 24HR Tablet (Imdur) PO SCH (09:28)
--- NOTE | 2018-06-14 11:42 | P.PNCS ---
Subjective Colorectal Surgery Post Op Day #: 2 Interval history: No N or V. No BMs. Tolerating FLD. Sitting in chair. Pain better controlled Objective Result Diagrams: 06/14/18 07:26 06/14/18 07:26 Objective Remarks: Abd: soft, wound clean. Not much blood in drain. 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
[2018-06-14] MEDS: Ranolazine 500 MG 12HR ER Tablet PO SCH (21:50)
[2018-06-15] MEDS: Levothyroxine 50 MCG Tablet PO SCH (05:47)
[2018-06-15] MEDS: Pantoprazole Inj 40 MG Vial IV.PUSH SCH (08:36)
[2018-06-15] MEDS: Isosorbide Mononitrate 30 MG ER 24HR Tablet (Imdur) PO SCH (08:37)
[2018-06-15] MEDS: Atenolol 25 MG Tablet PO SCH (08:37)
[2018-06-15] MEDS: Folic Acid 1 MG Tablet PO SCH (08:37)
[2018-06-15] MEDS: Ezetimibe 10 MG Tablet PO SCH (08:37)
--- NOTE | 2018-06-15 08:42 | P.PNCS ---
Subjective Colorectal Surgery Post Op Day #: 3 Interval history: C/O Nausea this AM. OOB in chair now. Small BM but no flatus. Reg diet started today but not hungry with nausea. I told him to limit intake until nausea passes. No chaest pain or heart issues. On all home cardiac meds. Objective Result Diagrams: 06/14/18 07:26 06/14/18 07:26 Objective Remarks: Abd: soft, mild distention,wound clean. Sero sanguinous drainage Assessment and Plan - Plan Nausea. NPO for now. Await Ileus resolution Ambulate more N/G if vomiting Increase IVs until Ileus resolves.
[2018-06-15] MEDS: KCL 20 mEq/D5W/LR Inj 1,000 ML IV.CONT SCH ×3 (12:32→20:05)
[2018-06-15 14:05] LABS: Baso % (Auto) 0.2 % (0.0-2.0); Eos # (Auto) 0.1 th/mm3 (0.0-0.4); Eos % (Auto) 0.8 % (0.0-4.0); Hematocrit 36.4 % (39.0-51.0); Hemoglobin 12.3 gm/dL (13.0-17.0); Lymph % (Auto) 8.4 % (9.0-44.0); Mean Corpuscular HGB Conc 33.7 % (32.0-36.0); Mean Corpuscular Hemoglobin 34.2 pg (27.0-34.0); Mean Corpuscular Volume 101.5 fL (80.0-100.0); Mono # (Auto) 1.4 th/mm3 (0.0-0.9); Mono % (Auto) 11.9 % (0.0-8.0); Neut # (Auto) 9.3 th/mm3 (1.8-7.7); Neut % (Auto) 78.7 % (16.0-70.0); Platelet Count 197 th/mm3 (150-450); Red Blood Count 3.58 mil/mm3 (4.50-5.90); Red Cell Distribution Width 14.5 % (11.6-17.2); White Blood Count 11.8 th/mm3 (4.0-11.0)
[2018-06-15 14:28] LABS: Carbon Dioxide 32.3 meq/L (21.0-32.0); Potassium 4.4 meq/L (3.5-5.1)
[2018-06-15] MEDS: Morphine Inj 4 MG/ML Vial IV.CONT PRN ×2 (17:34→22:23)
--- NOTE | 2018-06-15 20:36 | P.PNCS ---
Subjective Colorectal Surgery Post Op Day #: 3 Interval history: Pt with multiple bouts of Nausea and vomiting. Attempts at NG placement by RNs not successful. NG placed by me. Objective Result Diagrams: 06/15/18 13:49 06/15/18 13:49 Objective Remarks: Abd: soft, mild distention,wound clean. Sero sanguinous drainage. Mild tympany Assessment and Plan - Plan NG placed. 1liter vomited and 1 liter aspirated after placed. NG to low int suction Change IV to D5NSS with 30meq KCl at 150/hr AxR in AM for positioning.
[2018-06-15] MEDS: Ranolazine 500 MG 12HR ER Tablet PO SCH (21:28)
[2018-06-15] MEDS: Potassium Chloride Inj 30 MEQ in Dextrose 5%/NaCl 0.9% Inj 1,000 ML IV.CONT SCH ×2 (21:28→22:20)
[2018-06-16] MEDS: Potassium Chloride Inj 30 MEQ in Dextrose 5%/NaCl 0.9% Inj 1,000 ML IV.CONT SCH ×3 (05:19→22:32)
[2018-06-16] MEDS: Levothyroxine 50 MCG Tablet PO SCH (05:20)
--- NOTE | 2018-06-16 06:01 | XR ---
EXAM DATE: 06/16/2018 5:15 AM EST AGE/SEX: 78 years / Male INDICATIONS: Abdominal distention. CLINICAL DATA: This is the patient's subsequent encounter. Patient reports that signs and symptoms h ave been present for 4 - 6 days and indicates a pain score of 8/10. MEDICAL/SURGICAL HISTORY: Gastroesophageal reflux disease. Hypertension. CABG. Coronary arter y stent. Cholecystectomy. Colon resection. COMPARISON: [facility], CT ABDOMEN AND PELVIS W/ CONTRAST, 05/23/2018. . FINDINGS: Stable NGT. Multiple loops of minimally distended small bowel containing air-fluid levels. Surgical d rain in place in the mid pelvis. Air is seen throughout the colon. Remainder of the exam is unchanged . CONCLUSION: 1. NGT in the stomach. Surgical drain in the mid pelvis. 2. Findings most consistent with adynamic ileus. Electronically signed by: Billy Haywood MD Board Certified Radiologist 06/16/2018 6:00 AM EST
[2018-06-16 06:17] LABS: Hematocrit 33.3 % (39.0-51.0); Hemoglobin 11.7 gm/dL (13.0-17.0); Mean Corpuscular HGB Conc 35.2 % (32.0-36.0); Mean Corpuscular Hemoglobin 34.9 pg (27.0-34.0); Mean Corpuscular Volume 99.1 fL (80.0-100.0); Mean Platelet Volume 7.5 fL (7.0-11.0); Platelet Count 173 th/mm3 (150-450); Red Blood Count 3.36 mil/mm3 (4.50-5.90); Red Cell Distribution Width 13.9 % (11.6-17.2); White Blood Count 10.3 th/mm3 (4.0-11.0)
[2018-06-16 06:46] LABS: Calcium 8.3 mg/dL (8.5-10.1); Carbon Dioxide 29.9 meq/L (21.0-32.0)
--- NOTE | 2018-06-16 08:54 | P.PNCS ---
Subjective Colorectal Surgery Post Op Day #: 4 Interval history: No vomiting since NG placed. Large output. Wants tube out. AxR shows air in SB and colon C/W ileus. Stomach still has small A/F level Objective Result Diagrams: 06/16/18 05:23 06/16/18 05:23 Objective Remarks: Abd: soft, flat, nondistended.Incision clean Assessment and Plan - Plan NG to low int suction Decrease IVs today Repeat AxR in AM. Ambulate to help stimulate bowel function. Possibly D/C NG today Continue NPO for now
[2018-06-16] MEDS: Pantoprazole Inj 40 MG Vial IV.PUSH SCH (09:49)
[2018-06-16] MEDS: Atenolol 25 MG Tablet PO SCH ×2 (09:53→10:26)
[2018-06-16] MEDS: Isosorbide Mononitrate 30 MG ER 24HR Tablet (Imdur) PO SCH ×2 (09:53→10:25)
[2018-06-16] MEDS: Folic Acid 1 MG Tablet PO SCH ×2 (09:53→10:25)
[2018-06-16] MEDS: Ezetimibe 10 MG Tablet PO SCH ×2 (09:53→13:28)
[2018-06-16] MEDS: Ranolazine 500 MG 12HR ER Tablet PO SCH (20:11)
[2018-06-17] MEDS: Potassium Chloride Inj 30 MEQ in Dextrose 5%/NaCl 0.9% Inj 1,000 ML IV.CONT SCH (05:33)
[2018-06-17] MEDS: Levothyroxine 50 MCG Tablet PO SCH (05:34)
[2018-06-17] MEDS: Ezetimibe 10 MG Tablet PO SCH (08:30)
[2018-06-17] MEDS: Isosorbide Mononitrate 30 MG ER 24HR Tablet (Imdur) PO SCH (08:30)
[2018-06-17] MEDS: Atenolol 25 MG Tablet PO SCH (08:30)
[2018-06-17] MEDS: Folic Acid 1 MG Tablet PO SCH (08:30)
[2018-06-17] MEDS: Pantoprazole Inj 40 MG Vial IV.PUSH SCH (08:31)
--- NOTE | 2018-06-17 09:25 | XR ---
EXAM DATE: 06/17/2018 9:19 AM EST AGE/SEX: 78 years / Male INDICATIONS: F/U ileus CLINICAL DATA: This is the patient's initial encounter. Patient reports that signs and symptoms have been present for 4 - 6 days and indicates a pain score of 5/10. MEDICAL/SURGICAL HISTORY: Hypertension. Gastroesophageal reflux disease. Myocardial infarctio n. diverticulosis Coronary artery stent. CABG. Cholecystectomy. colon resection for diverticulit is COMPARISON: [facility] [place], ABDOMEN 2V FLAT & UPRIGHT, 06/16/2018. . FINDINGS: Sternotomy wires and surgical clips left lung base. Air-fluid level is seen within the stomach and irina wel loops on the upright film. On the supine film, there are air-filled loops of bowel, nondilated wi th decreased gaseous distention since previous. Findings do suggest some fold thickening of small bow el loops. CONCLUSION: Air filled nondilated loops of bowel with possible fold thickening. Electronically signed by: Kedar Pavon MD Board Certified Radiologist 06/17/2018 9:24 AM EST
[2018-06-17 09:36] LABS: Baso % (Auto) 0.3 % (0.0-2.0); Eos # (Auto) 0.2 th/mm3 (0.0-0.4); Eos % (Auto) 2.6 % (0.0-4.0); Hematocrit 33.2 % (39.0-51.0); Hemoglobin 11.3 gm/dL (13.0-17.0); Lymph # (Auto) 0.9 th/mm3 (1.0-4.8); Lymph % (Auto) 9.7 % (9.0-44.0); Mean Corpuscular Hemoglobin 34.5 pg (27.0-34.0); Mean Corpuscular Volume 101.4 fL (80.0-100.0); Mean Platelet Volume 7.4 fL (7.0-11.0); Mono # (Auto) 0.9 th/mm3 (0.0-0.9); Mono % (Auto) 9.3 % (0.0-8.0); Neut # (Auto) 7.6 th/mm3 (1.8-7.7); Neut % (Auto) 78.1 % (16.0-70.0); Platelet Count 169 th/mm3 (150-450); Red Blood Count 3.27 mil/mm3 (4.50-5.90); Red Cell Distribution Width 14.6 % (11.6-17.2); White Blood Count 9.7 th/mm3 (4.0-11.0)
[2018-06-17 10:05] LABS: Calcium 8.3 mg/dL (8.5-10.1); Carbon Dioxide 26.1 meq/L (21.0-32.0); Potassium 3.7 meq/L (3.5-5.1)
--- NOTE | 2018-06-17 13:29 | P.PNCS ---
Subjective Colorectal Surgery Post Op Day #: 5 Interval history: No Nor V. Multiple loose BMs. Ileus seems resolved. Still has A/F level in stomach on AxR this AM, but O/W WNL. Objective Result Diagrams: 06/17/18 07:52 06/17/18 07:52 Objective Remarks: Abd: soft, flat, nondistended.Incision clean Assessment and Plan - Plan NG removed yesterday Start Regular diet now Continue to ambulate Wants to go home; will D/C in AM if tolerating PO.
[2018-06-17] MEDS: KCL 20 mEq/D5W/LR Inj 1,000 ML IV.CONT SCH (20:21)
[2018-06-17] MEDS: Ranolazine 500 MG 12HR ER Tablet PO SCH (21:48)
[2018-06-18] MEDS: Levothyroxine 50 MCG Tablet PO SCH (05:14)
[2018-06-18] MEDS: Folic Acid 1 MG Tablet PO SCH (08:30)
[2018-06-18] MEDS: Isosorbide Mononitrate 30 MG ER 24HR Tablet (Imdur) PO SCH (08:31)
[2018-06-18] MEDS: Pantoprazole Inj 40 MG Vial IV.PUSH SCH (08:31)
[2018-06-18] MEDS: Ezetimibe 10 MG Tablet PO SCH (08:32)
[2018-06-18] MEDS: Atenolol 25 MG Tablet PO SCH (08:32)
--- NOTE | 2018-06-18 09:15 | P.PNCS ---
Subjective Colorectal Surgery Post Op Day #: 6 Interval history: Minimal nausea, no vomiting. Multiple loose BMs. Objective Result Diagrams: 06/17/18 07:52 06/17/18 07:52 Objective Remarks: Abd: soft, flat, nondistended.Incision clean. Drain serous removed by me Assessment and Plan - Plan Still some nausea. Will see how he does today. May D/C later today or tomorrow depending how he feels. He really would like to go home but I want to watch nausea even though he's stooling. AxR showed probable persistent Gastric ileus. Will reassess later
[2018-06-18] MEDS: KCL 20 mEq/D5W/LR Inj 1,000 ML IV.CONT SCH ×2 (16:15→18:28)
[2018-06-18] MEDS: Ranolazine 500 MG 12HR ER Tablet PO SCH ×2 (19:32→23:30)
[2018-06-19] MEDS: Levothyroxine 50 MCG Tablet PO SCH (06:19)
[2018-06-19] MEDS: KCL 20 mEq/D5W/LR Inj 1,000 ML IV.CONT SCH (06:19)
--- NOTE | 2018-06-19 07:13 | P.PNCS ---
Subjective Colorectal Surgery Post Op Day #: 7 Interval history: Nausea now minimal intermittent. Still stooling Objective Result Diagrams: 06/17/18 07:52 06/17/18 07:52 Objective Remarks: Abd: soft,Incision clean. Assessment and Plan - Plan D/C today. F/U with me 2 weeks Stay on all meds pre op He has plenty of pain meds at home
[2018-06-19] MEDS: Folic Acid 1 MG Tablet PO SCH (08:29)
[2018-06-19] MEDS: Pantoprazole Inj 40 MG Vial IV.PUSH SCH (08:30)
[2018-06-19] MEDS: Ezetimibe 10 MG Tablet PO SCH (08:30)
[2018-06-19] MEDS: Atenolol 25 MG Tablet PO SCH (08:30)
[2018-06-19] MEDS: Isosorbide Mononitrate 30 MG ER 24HR Tablet (Imdur) PO SCH (08:30)
[2018-06-19 08:47] VITALS: BP 136/63; PULSE 87; RESP 17; TEMP 98.4; O2SAT 96
== END 2018-06-19 10:40 | disposition home or self-care (01) | DRG 330 ==
LOC: HSDI 12:15 → HCPC 20:04 → N07 06-13 16:54
PROVIDERS: ADMIT Colon & Rectal Surgery; ATTEND Colon & Rectal Surgery
CPT/HCPCS: 74019; 80048; 85025; 85027; 86850; 86900; 86901; 88307; 94150; C1769; C9113; J0131; J0360; J0690; J1170; J1940; J2250; J2270; J2405; J2765; J3010; J3480; J7042